=== PATIENT | female | born 1955 | race Caucasian/White ===

== ENCOUNTER 2025-03-20 14:08 | Outpatient (OUT) | payer MEDICARE, OTHER, SELFPAY ==
--- OUTSIDE RECORDS SUMMARY | 2025-03-07 13:07 | XMS_ITS | Encounter Summary ---
Author Organization [facility] Address [address], [address] [place] [address] Care Team Providers Care Welder And Fitter Name Role Phone Abdullahi Zarate aNthan IRIZARRYN - AIRCRAFT MANAGER Primary Care Provider Encounter Details DateTypeDepartmentCare Team (Latest Contact Info)Zgtoinljkdc69/31/2025 2:07 PM EDT - 03/07/2025 11:59 PM EDTHospital Encounter [address] [address] Stage 3a chronic kidney disease (HCC); Irritable bowel syndrome with diarrhea Discharge Disposition: Home or Self Care Social History Tobacco UseTypesPacks/DayYears UsedDateSmoking Tobacco: Every DayCigarettes1.544 Smokeless Tobacco: NeverAlcohol UseStandard Drinks/WeekCommentsYes1 (1 standard drink = 0.6 oz pure alcohol)A beer every once in QriketAnswerDate RecordedIn the past 12 months has the electric, gas, oil, or water company threatened to shut off services in your home?No5AUDIT-CAnswerDate RecordedQ1: How often do you have a drink containing alcohol?2-4 times a month 03/06/2024Q2: How many drinks containing alcohol do you have on a typical day when you are drinking?1 or Q3: How often do you have six or more drinks on one occasion?Never03/06/2024Overall Financial Resource Strain (CARDIA) AnswerDate RecordedHow hard is it for you to pay for the very basics like food, housing, medical care, and heating?Patient urkwuphe54/02/2024HQ-2AnswerDate RecordedPHQ-9 Total Npydj955Exercise Vital SignAnswerDate RecordedOn average, how many days per week do you engage in moderate to strenuous exercise (like a brisk walk)?6 days03/06/2024On average, how many minutes do you engage in exercise at this level?30 min03/06/2024Hunger Vital SignAnswerDate Recorded Within the past 12 months, you worried that your food would run out before you got the money to buymore.Never true12/11/2024Within the past 12 months, the food you bought just didn't last and you didn't have money to get more.Never true 12/11/2024PRAPARE - TransportationAnswerDate RecordedIn the past 12 months, has lack of transportation kept you from medical appointments or from getting medications?No12/11/2024In the past 12 months, has lack of transportation kept you from meetings, work, or from getting things needed for daily living?No 12/11/2024Housing Stability Vital SignAnswerDate RecordedUnable to Pay for Housing in the Last YearNot on file09/11/2023Number of Places Lived in the Last YearNot on file09/11/2023In the last 12 months, was there a time when you did not have a steady place to sleep or slept in [place] (including now)?No 09/11/2023Housing Stability Vital SignAnswerDate RecordedIn the last 12 months, was there a time when you were not able to pay the mortgage or rent on time?No 12/11/2024In the past 12 months, how many times have you moved where you were living?t any time in the past 12 months, were you homeless or living in a assisted (including now)?No12/11/2024UDIT-CAnswerDate RecordedQ1: How often do you have a drink containing alcohol?2-4 times a month03/06/2025Q2: How many drinks containing alcohol do you have on a typical day when you are drinking?1 or Q3: How often do you have six or more drinks on one occasion?Never 03/06/2025Exercise Vital SignAnswerDate RecordedOn average, how many days per week do you engage in moderate to strenuous exercise (like a brisk walk)?4 days 03/06/2025On average, how many minutes do you engage in exercise at this level? 30 min03/06/2025Food InsecurityAnswerDate RecordedWithin the past 12 months, you worried that your food would run out before you got the money to buymore.1 12/11/2024Within the past 12 months, the food you bought just didn't last and you didn't have money to get more.CommentsNoSex and Gender InformationValueDate RecordedSex Assigned at KzwzkVpslye80/26/2020 2:33 PM EDT Legal GywSjkrje79/10/2013 9:43 PM ESTGender VfqpiyjaZvksbf31/26/2020 2:33 PM EDT Sexual VnphvocosvkTpwskzwv91/26/2020 2:33 PM EDTdocumented as of this encounter Medications at Time of Discharge MedicationSigDispense QuantityRefillsLast FilledStart DateEnd Date VOWST CAPS 01/21/2025 vancomycin (VANCOCIN) 125 MG capsule TAKE 1 CAPSULE BY MOUTH THREE TIMES DAILY FOR 7 DAYS THEN 1 TWICE DAILY FOR 7 DAYS THEN 1 ONCE DAILY FOR 7 DAYS THEN EVERY OTHER DAY FOR 4 DOSES12/19/2024 lisinopril (PRINIVIL;ZESTRIL) 2.5 MG tablet Indications:Essential hypertensionTake 1 tablet by mouth once daily 90 tablet 01/17/2025 gabapentin (NEURONTIN) 100 MG capsule Take 1 capsule by mouth 2 times daily for 90 days. 180 capsule amoxicillin-clavulanate (AUGMENTIN) 875-125 MG per tablet Take 1 tablet by mouth every 12 hours12/07/2024 [facility]. Devices (COMMODE BEDSIDE) [facility] Indications:Irritable bowel syndrome with diarrhea,Weakness1 each by Does not apply route daily as needed (diarrhea) 1 each 09/10/2024 ondansetron (ZOFRAN-ODT) 4 MG disintegrating tablet Take 1 tablet by mouth every 8 hours as needed for Nausea or Vomiting 10 tablet 08/12/2024 metoprolol succinate (TOPROL XL) 25 MG extended release tablet Indications:Essential hypertension,Dyslipidemia,History of stroke,Coronary artery calcification,Tobacco abuse counselingTake 1 tablet by mouth once daily 90 tablet nitroGLYCERIN (NITROSTAT) 0.[address] 1 tablet under the tongue every 5 minutes as needed for Chest pain 25 tablet aspirin 81 MG EC tablet Indications:Essential hypertensionTake 1 tablet by mouth daily 90 tablet Multiple Vitamins-Minerals (COMPLETE MULTIVITAMIN/MINERAL PO) Take by mouth diphenhydrAMINE (BENADRYL) 25 MG capsule Take 2 capsules by mouth continuous ACETAMINOPHEN PO Take 500 mg by mouth daily Takes 1 in morning zoster recombinant adjuvanted vaccine (SHINGRIX) 50 MCG/0.5ML SUSR injection Indications:Need for shingles vaccineInject 0.5 mLs into the muscle See Admin Instructions 1 dose now and repeat in 2-6 months 0.5 mL atorvastatin (LIPITOR) 40 MG tablet Indications:DyslipidemiaTake 1 tablet by mouth nightly 90 tablet levalbuterol (XOPENEX) 1.25 MG/3ML nebulizer solution Indications:Chronic obstructive pulmonary disease with acute exacerbation (HCC) Take 3 mLs by nebulization every 6 hours as needed for Wheezing J44.0 J20.9 25 each documented as of this encounter Plan of Treatment DateTypeDepartmentCare Team (Latest Contact Info)Vdilmsxggvv49/19/2025 12:00 PM ESTOffice Visit [facility] Part of [address] [address] Indy Gonzalez MD [address] [place] [address] breast cancer ccvvzw4907/24/2025 1:00 PM EDTOffice Visit [facility] Part of [facility] [address] [place] [address] Lorena De La Vega MD [address] [facility] [place] [address] 1 yr09/10/2025 1:40 PM EDTOffice Visit [facility] [address] [place] [place] [address] Abdullahi Zarate, COKE HANDLING SUPERVISOR - AIRCRAFT MANAGER [address] [place] [address] 6 monthdocumented as of this encounter Procedures Procedure NamePriorityDate/TimeAssociated DiagnosisCommentsCBC WITH AUTO XLFDORTJMKWRGyswjmi93/31/2025 2:13 PM EDT Stage 3a chronic kidney disease (HCC) Irritable bowel syndrome with diarrhea BASIC METABOLIC RMKUFYkvegms51/31/2025 2:13 PM EDT Stage 3a chronic kidney disease (HCC) Irritable bowel syndrome with diarrhea documented in this encounter Results * (ABNORMAL) CBC with Auto Differential (03/07/2025 2:13 PM EDT)ComponentValue Ref RangeTest MethodAnalysis TimePerformed AtPathologist SignatureWBC9.03.5 - 11.3 k/uL03/07/2025 2:13 PM [facility] LABRBC3.66(L)3.95 - 5.11 m/uL03/07/2025 2:13 PM [facility] LABHemoglobin 11.5(L)11.9 - 15.1 g/dL03/07/2025 2:13 PM [facility] Tnlxzpawlj36.6(L)36.3 - 47.1 %03/07/2025 2:13 PM [facility] ZEDRKX99.582.6 - 102.9 fL03/07/2025 2:13 PM [facility] VCEHRW91.425.2 - 33.5 pg03/07/2025 2:13 PM [facility] NUNZBCZ60.228.4 - 34.8 g/dL03/07/2025 2:13 PM [facility] UGNYWM23.211.8 - 14.4 %03/07/2025 2:13 PM [facility] GBZMhucfangi387371 - 453 k/uL03/07/2025 2:13 PM [facility] LABMPV8.68.1 - 13.5 fL03/07/2025 2:13 PM [facility] LABNRBC Automated0.00.0 per 100 WBC03/07/2025 2:13 PM [facility] LABNeutrophils %5536 - 65 %03/07/2025 2:13 PM [facility] LABLymphocytes %3124 - 43 %03/07/2025 2:13 PM [facility] LABMonocytes %73 - 12 %03/07/2025 2:13 PM [facility] LABEosinophils %6(H)1 - 4 %03/07/2025 2:13 PM [facility] LABBasophils %10 - 2 %03/07/2025 2:13 PM [facility] LABImmature Granulocytes %00 %03/07/2025 2:13 PM [facility] LABNeutrophils Absolute4.991.50 - 8.10 k/uL 03/07/2025 2:13 PM [facility] LABLymphocytes Absolute2.73 1.10 - 3.70 k/uL03/07/2025 2:13 PM [facility] Monocytes Absolute0.590.10 - 1.20 k/uL03/07/2025 2:13 PM [facility] LABEosinophils Absolute0.56(H)0.00 - 0.44 k/uL03/07/2025 2:13 PM [facility] LABBasophils Absolute0.070.00 - 0.20 k/uL 03/07/2025 2:13 PM [facility] LABImmature Granulocytes Absolute<0.030.00 - 0.30 k/uL03/07/2025 2:13 PM [facility] LABSpecimen (Source)Anatomical Location / LateralityCollection Method / VolumeCollection TimeReceived TimeBloodBLOOD SPECIMEN / Inhkdxc2803/07/2025 2:13 PM EDT1 2:14 PM EDT Narrative Authorizing ProviderResult TypeResult StatusBrett W Might COKE HANDLING SUPERVISOR - CNPHEMATOLOGY ORDERABLESFinal ResultPerforming OrganizationAddressCity/State/ZIP CodePhone Number [facility] [address] [phone] * (ABNORMAL) Basic Metabolic Panel (03/07/2025 2:13 PM EDT)ComponentValueRef RangeTest MethodAnalysis TimePerformed AtPathologist DlobmumfnXridrd486(L)136 - 145 mmol/L1 2:13 PM [facility] LABPotassium4.2 3.7 - 5.3 mmol/L1 2:13 PM [facility] LABChloride 96(L)98 - 107 mmol/L1 2:13 PM [facility] LABCO2 2620 - 31 mmol/L1 2:13 PM [facility] LABAnion Bze034 - 16 mmol/L1 2:13 PM [facility] Hygdfnp5052 - 99 mg/dL03/07/2025 2:13 PM [facility] IVL257 - 23 mg/dL03/07/2025 2:13 PM [facility] Creatinine0.90.50 - 0.90 mg/dL03/07/2025 2:13 PM [facility] LABEst, Glom Filt Rate67>60 mL/min/1.36x16503/07/2025 2:13 PM [facility] LABComment: ? These results are not intended for use in patients <18 years of age. ? eGFR results are calculated without a race factor using the 2020 CKD-EPI equation. Careful clinical correlation is recommended, particularly when comparing to results calculated using previous equations. The CKD-EPI equation is less accurate in patients with extremes of muscle mass, extra-renal metabolism of creatine, excessive creatine ingestion, or following therapy that affects renal tubular secretion. BUN/Creatinine Libjf353 - 2:13 PM [facility] LABCalcium9.68.6 - 10.4 mg/dL03/07/2025 2:13 PM [facility] LABSpecimen (Source)Anatomical Location / LateralityCollection Method / Volume Collection TimeReceived TimeBloodBLOOD SPECIMEN / Hqvsaik5403/07/2025 2:13 PM EDT 03/07/2025 2:14 PM EDT Narrative Authorizing ProviderResult TypeResult StatusAbdullahi Resendiz CNPCHEMISTRY ORDERABLESFinal ResultPerforming OrganizationAddressCity/State/ZIP CodePhone Number [facility] [address] [phone] documented in this encounter Visit Diagnoses Diagnosis Stage 3a chronic kidney disease (HCC) Irritable bowel syndrome with diarrhea Irritable bowel syndrome documented in this encounter Additional Health Concerns AssessmentNoted TimeA fall risk assessment has been completed for the patient 03/06/2025 2:04 PM EDTdocumented as of this encounter Care Teams Team MemberRelationshipSpecialtyStart DateEnd Date Abdullahi Zarate APRN - CNP PCP - GeneralNurse Practitioner07/23/13documented as of this encounter
--- OUTSIDE RECORDS SUMMARY | 2025-03-13 13:40 | XMS_ITS | Encounter Summary ---
Author Organization [facility] Address [address], [address] [place] [address] Care Team Providers Care Business Sales Consultant Name Role Phone Abdullahi Zarate APRN, CNP Primary Care Provider Reason for Referral * Other (Routine) - AuthorizedSpecialtyDiagnoses / ProceduresReferred By Contact Referred To ContactRadiology Diagnoses Encounter for screening mammogram for malignant neoplasm of breast Procedures EDDIE PROSPER DIGITAL SCREEN BILATERAL Abdullahi Zarate APRN - CNP [address] [phone] Phone: tel: fax: Referral IDStatusReasonStart DateExpiration DateVisits RequestedVisits [id number]/6/[id number]/ * Imaging (Routine) - OpenSpecialtyDiagnoses / ProceduresReferred By Contact Referred To ContactRadiology Diagnoses Personal history of tobacco use Procedures CT Lung Screen (Initial/Annual/Baseline) Abdullahi Zarate APRN - CNP [address] [id number] Phone: tel: fax: Referral IDStatusReasonStart DateExpiration DateVisits RequestedVisits [id number]/6/[id number]/ Reason for Visit * ReasonCommentsMedicare AWVAwv and routine check.HyperlipidemiaCOPD Encounter Details DateTypeDepartmentCare Team (Latest Contact Info)Xpwracwywxp31/06/2025 1:40 PM ESTOffice Visit [facility] [place] [address] [place] [address] Abdullahi Zarate APRN - CNP [address] [place] [address] Medicare annual wellness visit, subsequent (Primary Dx); Dyslipidemia; Emphysema lung (HCC); Personal history of tobacco use; Encounter for screening mammogram for malignant neoplasm of breast Social History Tobacco UseTypesPacks/DayYears UsedDateSmoking Tobacco: Every DayCigarettes1.544 Smokeless Tobacco: NeverAlcohol UseStandard Drinks/WeekCommentsYes1 (1 standard drink = 0.6 oz pure alcohol)A beer every once in awhileAUDIT-CAnswerDate RecordedQ1: How often do you have a [...] like food, housing, medical care, and heating?Patient /02/2024HQ-2AnswerDate RecordedPHQ-9 Total Yhirf799Exercise Vital SignAnswerDate RecordedOn average, how many days per week do you engage in moderate to strenuous exercise (like a brisk walk)?6 days03/06/2024On average, how many minutes do you engage in exercise at this level?30 min03/06/2024RAPARE - TransportationAnswerDate RecordedIn the past 12 months, has lack of transportation kept you from medical appointments or from getting medications?No12/11/2024In the past 12 months, has lack of transportation kept you from meetings, work, or from getting things needed for daily living?No12/11/2024Housing Stability Vital SignAnswerDate RecordedUnable to Pay for Housing in the Last YearNot on file09/11/2023Number of Places Lived in the Last YearNot on file09/11/2023In the last 12 months, was there a time when you did not have a steady place to sleep or slept in [facility] (including now)?No09/11/2023Housing Stability Vital SignAnswerDate RecordedIn the last 12 months, was there a time when you were not able to pay the mortgage or rent on time?No03/13/2025In the past 12 months, how many times have you moved where you were living?t any time in the past 12 months, were you homeless or living in a care home (including now)?No03/13/2025UDIT-CAnswerDate RecordedQ1: How often do you have a drink containing alcohol?2-4 times a month 03/06/2025Q2: How many drinks containing alcohol do you have on a typical day when you are drinking?1 or Q3: How often do you have six or more drinks on one occasion?Never03/06/2025Exercise Vital SignAnswerDate RecordedOn average, how many days per week do you engage in moderate to strenuous exercise (like a brisk walk)?4 days03/06/2025On average, how many minutes do you engage in exercise at this level?30 min03/06/2025Hunger Vital SignAnswerDate Recorded Within the past 12 months, you worried that your food would run out before you got the money to buymore.Never true03/13/2025Within the past 12 months, the food you bought just didn't last and you didn't have money to get more.Never true 03/13/2025PRAPARE - TransportationAnswerDate RecordedIn the past 12 months, has lack of transportation kept you from medical appointments or from getting medications?No03/13/2025In the past 12 months, has lack of transportation kept you from meetings, work, or from getting things needed for daily living?No 03/13/2025HC UtilitiesAnswerDate RecordedIn the past 12 months has the electric, gas, oil, or water company threatened to shut off services in your home?No03/13/2025CommentsNoSex and Gender InformationValueDate Recorded Sex Assigned at AfddcNfxlch27/26/2020 2:33 PM EDTLegal VjuEhawsw95/10/2013 9:43 PM ESTGender KgihuajcZprork30/26/2020 2:33 PM EDTSexual OrientationStraight 03/02/2020 2:33 PM EDTdocumented as of this encounter Last Filed Vital Signs Vital SignReadingTime TakenCommentsBlood Iiolubvn952/6403/13/2025 1:36 PM EST Acvpv228003/13/2025 1:36 PM XSAHiinxbsfltg75.7 ??C (98 ??F)03/13/2025 1:36 PM EST Respiratory Rate--Oxygen Sdfavfljiq02%03/13/2025 1:36 PM ESTInhaled Oxygen Concentration--Mgtqux89.3 kg (122 lb)03/13/2025 1:36 PM QHARlfska531.1 cm (5' 5 )03/13/2025 1:36 PM ESTBody Mass Index20. 1:36 PM ESTdocumented in this encounter Patient Instructions * Patient Instructions* Abdullahi Zarate APRN - CNP - 03/13/2025 1:34 PM EST Images from the original note were not included. SURVEY: You may be receiving a survey from [employer] regarding your visit today. Please complete the survey to enable us to provide the highest quality of care to you and your family. If you cannot score us a very good on any question, please call the office to discuss how we could have made your experience a very good one. Thank you, LAURO Veliz, LAURO Gregorio, LARS Marks, CABLE SPLICER ASSISTANT Rubén, CABLE SPLICER ASSISTANT Zulma, CABLE SPLICER ASSISTANT Bibiana, CABLE SPLICER ASSISTANT Natalie, CABLE SPLICER ASSISTANT Buffy, PM Preventing Falls: Care Instructions Injuries and health problems such as trouble walking or poor eyesight can increase your risk of falling. So can some medicines. But there are things you can do to help prevent falls. You can exerciseto get stronger. You can also arrange your home to make it safer. Talk to your doctor about the medicines you take. Ask if any of them increase the risk of falls andwhether they can be changed or stopped. Try to exercise regularly. It can help improve your strength and balance. This can help lower your risk of falling. Practice fall safety and prevention. Wear low-heeled shoes that fit well and give your feet good support. Talk to your doctor if you have foot problems that make this hard. Carry a cellphone or wear a medical alert device that you can use to call for help. Use stepladders instead of chairs to reach high objects. Don't climb if you're at risk for falls. Ask for help, if needed. Wear the correct eyeglasses, if you need them. Make your home safer. Remove rugs, cords, clutter, and furniture from walkways. Keep your house well lit. Use night-lights in hallways and bathrooms. Install and use sturdy handrails on stairways. Wear nonskid footwear, even inside. Don't walk barefoot or in socks without shoes. Be safe outside. Use handrails, curb cuts, and ramps whenever possible. Keep your hands free by using a shoulder bag or backpack. Try to walk in well-lit areas. Watch out for uneven ground, changes in pavement, and debris. Be careful in the winter. Walk on the grass or gravel when sidewalks are slippery. Use de-icer on steps and walkways. Add non-slip devices to shoes. Put grab bars and nonskid mats in your shower or tub and near the toilet. Try to use a shower chairor bath bench when bathing. Get into a tub or shower by putting in your weaker leg first. Get out with your strong side first. Have a phone or medical alert device in the bathroom with you. Where can you learn more? Go to https://www.healthwise.net/patientEd and enter G117 to learn more about Preventing Falls: Care Instructions. Current as of: December 06, 2023 Content Version: 14.6 ?? [employer]. Care instructions adapted under license by [employer]. If you have questions about a medical condition or this instruction, always ask your healthcare professional. [employer], [employer], disclaims any warranty or liability for your use of this information. Learning About Lung Cancer Screening What is screening for lung cancer? Lung cancer screening is a way to find some lung cancers early, before a person has any symptoms ofthe cancer. Lung cancer screening may help those who have the highest risk for lung cancer--people age 50 and older who are or were heavy smokers. For most people, who aren't at increased risk, screening for lung cancer probably isn't helpful. Screening won't prevent cancer. And it may not find all lung cancers. Lung cancer screening may lower the risk of dying from lung cancer in a small number of people. How is it done? Lung cancer screening is done with a low-dose CT (computed tomography) scan. A CT scan uses X-rays,or radiation, to make detailed pictures of your body. Experts recommend that screening be done in medical centers that focus on finding and treating lung cancer. Who is screening recommended for? Lung cancer screening is recommended for people age 50 and older who are or were heavy smokers. That means people with a smoking history of at least 20 pack years. A pack year is a way to measure howheavy a smoker you are or were. To figure out your pack years, multiply how many packs a day on average (assuming 20 cigarettes perpack) you have smoked by how many years you have smoked. For example: If you smoked 1 pack a day for 20 years, that's 1 times 20. So you have a smoking history of 20 pack years. If you smoked 2 packs a day for 10 years, that's 2 times 10. So you have a smoking history of 20 pack years. Experts agree that screening is for people who have a high risk of lung cancer. But experts don't agree on what high risk means. Some say people age 50 or older with at least a 87-cjcn-pehq smoking history are high risk. Others say it's people age 55 or older with a 22-wdub-qggz history. To see if you could benefit from screening, first find out if you are at high risk for lung cancer.Your doctor can help you decide your lung cancer risk. What are the risks of screening? CT screening for lung cancer isn't perfect. It can show an abnormal result when it turns out there wasn't any cancer. This is called a false-positive result. This means you may need more tests to make sure you don't have cancer. These tests can be harmful and cause a lot of worry. These tests may include more CT scans and invasive testing like a lung biopsy. In a biopsy, the doctor takes a sample of tissue from inside your lung so it can be looked at under a microscope. A biopsy is the only way to tell if you have lung cancer. If the biopsy finds cancer, you and your doctor will have to decide how or whether to treat it. Some lung cancers found on CT scans are harmless and would not have caused a problem if they had not been found through screening. But because doctors can't tell which ones will nocturnist physician to be harmless, most will be treated. This means that you may get treatment--including surgery, radiation, or chemotherapy--that you don't need. There is a risk of damage to cells or tissue from being exposed to radiation, including the small amounts used in CTs, X-rays, and other medical tests. Over time, exposure to radiation may cause cancer and other health problems. But in most cases, the risk of getting cancer from being exposed to small amounts of radiation is low. It's not a reason to avoid these tests for most people. What are the benefits of screening? Your scan may be normal (negative). For some people who are at higher risk, screening lowers the chance of dying of lung cancer. How much and how long you smoked helps to determine your risk level. Screening can find some cancers early, when treatment may be more likely to work. What happens after screening? The results of your CT scan will be sent to your doctor. Someone from your care team will explain the results of your scan and answer any questions you may have. If you need any follow-up, he or she will help you understand what to do next. After a lung cancer screening, you can go back to your usual activities right away. A lung cancer screening test can't tell if you have lung cancer. If your results are positive, yourdoctor can't tell whether an abnormal finding is a harmless nodule, cancer, or something else without doing more tests. What can you do to help prevent lung cancer? Some lung cancers can't be prevented. But if you smoke, quitting smoking is the best step you can take to prevent lung cancer. If you want to quit, your doctor can recommend medicines or other ways to help. Follow-up care is a saunders part of your treatment and safety. Be sure to make and go to all appointments, and call your doctor if you are having problems. It's also a good idea to know your test resultsand keep a list of the medicines you take. Where can you learn more? Go to https://www.[employer].net/patientEd and enter Q940 to learn more about Learning About Lung Cancer Screening. Current as of: March 01, 2024 Content Version: 14.6 ?? 1363-6411 [employer]. Care instructions adapted under license by [employer]. If you have questions about a medical condition or this instruction, always ask your healthcare professional. [employer], disclaims any warranty or liability for your use of this information. A Healthy Heart: Care Instructions Overview Coronary artery disease, also called heart disease, occurs when a substance called plaque builds upin the vessels that supply oxygen-rich blood to your heart muscle. This can narrow the blood vessels and reduce blood flow. A heart attack happens when blood flow is completely blocked. A high-fat diet, smoking, and other factors increase the risk of heart disease. Your doctor has found that you have a chance of having heart disease. A heart- healthy lifestyle canhelp keep your heart healthy and prevent heart disease. This lifestyle includes eating healthy, being active, staying at a weight that's healthy for you, and not smoking, vaping, or using other tobacco or nicotine products. It also includes taking medicines as directed, managing other health conditions, and trying to get a healthy amount of sleep. Follow-up care is a saunders part of your treatment and safety. Be sure to make and go to all appointments, and contact your doctor if you are having problems. It's also a good idea to know your test results and keep a list of the medicines you take. How can you care for yourself at home? Diet Use less salt when you cook and eat. This helps lower your blood pressure. Taste food before salting. Add only a little salt when you think you need it. With time, your taste buds will adjust to lesssalt. Eat fewer snack items, fast foods, canned soups, and other high-salt, high-fat, processed foods. Read food labels and try to avoid saturated and trans fats. They increase your risk of heart disease by raising cholesterol levels. Limit the amount of solid fat--butter, margarine, and shortening--you eat. Use olive, peanut, or canola oil when you cook. Bake, broil, and steam foods instead of frying them. Eat a variety of fruit and vegetables every day. Dark green, deep orange, red, or yellow fruits andvegetables are especially good for you. Examples include spinach, carrots, peaches, and berries. Foods high in fiber can reduce your cholesterol and provide important vitamins and minerals. High-fiber foods include whole-grain cereals and breads, oatmeal, beans, brown rice, citrus fruits, and apples. Eat lean proteins. Heart-healthy proteins include seafood, lean meats and poultry, eggs, beans, peas, nuts, seeds, and soy products. Limit drinks and foods with added sugar. These include candy, desserts, and soda pop. Heart-healthy lifestyle If your doctor recommends it, get more exercise. For many people, walking is a good choice. Or you may want to swim, bike, or do other activities. Bit by bit, increase the time you're active every day. Try for at least 30 minutes on most days of the week. If you smoke, vape, or use other tobacco or nicotine products, try to quit. If you can???t quit, cut back as much as you can. If you need help quitting, talk to your doctor about quit programs and medicines. Quitting is one of the most important things you can do to protect your heart. Also avoid secondhand smoke and the aerosol mist from vaping. Stay at a weight that's healthy for you. Talk to your doctor if you need help losing weight. Try to get 7 to 9 hours of sleep each night. Limit alcohol to 2 drinks a day for men and 1 drink a day for women. Too much alcohol can cause health problems. Manage other health problems such as diabetes, high blood pressure, and high cholesterol. If you think you may have a problem with alcohol or drug use, talk to your doctor. Medicines Take your medicines exactly as prescribed. Contact your doctor if you think you are having a problem with your medicine. When should you call for help? Call 911 if you have symptoms of a heart attack. These may include: Chest pain or pressure, or a strange feeling in the chest. Sweating. Shortness of breath. Pain, pressure, or a strange feeling in the back, neck, jaw, or upper belly or in one or both shoulders or arms. Lightheadedness or sudden weakness. A fast or irregular heartbeat. After you call 911, the profiling machine set up operator may tell you to chew 1 adult-strength or 2 to 4 low-dose aspirin. Wait for an ambulance. Do not try to drive yourself. Watch closely for changes in your health, and be sure to contact your doctor if you have any problems. Where can you learn more? Go to https://www.[employer].net/patientEd and enter F075 to learn more about A Healthy Heart: Care Instructions. Current as of: December 06, 2023 Content Version: 14.6 ?? 5273-5787 [employer]. Care instructions adapted under license by [employer]. If you have questions about a medical condition or this instruction, always ask your healthcare professional. [employer], disclaims any warranty or liability for your use of this information. Personalized Preventive Plan for Irene Baker - 03/13/2025 Medicare offers a range of preventive health benefits. Some of the tests and screenings are paid infull while other may be subject to a deductible, co- insurance, and/or copay. Some of these benefits include a comprehensive review of your medical history including lifestyle, illnesses that may run in your family, and various assessments and screenings as appropriate. After reviewing your medical record and screening and assessments performed today your provider mayhave ordered immunizations, labs, imaging, and/or referrals for you. A list of these orders (if applicable) as well as your Preventive Care list are included within your After Visit Summary for your review. documented in this encounter Progress Notes * Abdullahi Zarate APRN - CNP - 03/13/2025 1:43 PM EST Medicare Annual Wellness Visit Irene Baker is here for Medicare AWV (Awv and routine check.), Hyperlipidemia, and COPD Assessment & Plan Medicare annual wellness visit, subsequent Dyslipidemia - atorvastatin (LIPITOR) 40 MG tablet; Take 1 tablet by mouth nightly, Disp-90 tablet, R-3Normal - CBC with Auto Differential; Future - ALT; Future - AST; Future - Basic Metabolic Panel; Future - Lipid Panel; Future Emphysema lung (HCC) - levalbuterol (XOPENEX) 1.25 MG/3ML nebulizer solution; Take 3 mLs by nebulization every 6 hours as needed for Wheezing J44.0 J20.9, Disp-25 each, R-2Normal Personal history of tobacco use - [place] VISIT TO DISCUSS LUNG CA SCREEN W LDCT - CT Lung Screen (Initial/Annual/Baseline); Future Encounter for screening mammogram for malignant neoplasm of breast - [facility] PROSPER DIGITAL SCREEN BILATERAL; Future Return in 6 months (on 09/10/2025). Subjective The following acute and/or chronic problems were also addressed today: Irene is here for a Medicare annual wellness visit and a routine office visit. Hyperlipidemia This is a chronic problem. The current episode started more than 1 year ago. The problem is controlled. Recent lipid tests were reviewed and are normal. She has no history of chronic renal disease, liver disease or obesity. Factors aggravating her hyperlipidemia include smoking. Pertinent negativesinclude no chest pain, leg pain, myalgias or shortness of breath. Current antihyperlipidemic treatment includes statins. The current treatment provides significant improvement of lipids. There are nocompliance problems. Risk factors for coronary artery disease include dyslipidemia, family history,hypertension, post-menopausal and stress. COPD There is no chest tightness, cough, difficulty breathing, frequent throat clearing, hemoptysis, hoarse voice, shortness of breath, sputum production or wheezing. This is a chronic problem. The current episode started more than 1 year ago. The problem occurs intermittently. The problem has been unchanged. Pertinent negatives include no appetite change, chest pain, dyspnea on exertion, ear congestion, ear pain, fever, headaches, heartburn, malaise/fatigue, myalgias, nasal congestion, orthopnea, PND, postnasal drip, rhinorrhea, sneezing, sore throat, sweats, trouble swallowing or weight loss. Her symptoms are aggravated by URI, strenuous activity, exposure to smoke, exposure to fumes, change in weather and climbing stairs. Her symptoms are alleviated by rest and beta-agonist. She reports significant improvement on treatment. Her symptoms are not alleviated by rest. Risk factors for lung disease include smoking/tobacco exposure. Her past medical history is significant for bronchitis, COPD, emphysema and pneumonia. There is no history of asthma or bronchiectasis. Review of Systems Constitutional: Negative for appetite change, chills, fatigue, fever, malaise/fatigue and weight loss. HENT: Negative for congestion, ear pain, hoarse voice, postnasal drip, rhinorrhea, sneezing, sore throat and trouble swallowing. Eyes: Negative for visual disturbance. Respiratory: Negative for cough, hemoptysis, sputum production, shortness of breath and wheezing. Cardiovascular: Negative for chest pain, dyspnea on exertion, palpitations and PND. Gastrointestinal: Negative for abdominal pain, constipation, diarrhea, heartburn, nausea and vomiting. Genitourinary: Negative for difficulty urinating and dysuria. Musculoskeletal: Negative for gait problem, myalgias, neck pain and neck stiffness. Skin: Negative for rash. Neurological: Negative for dizziness, syncope, light-headedness and headaches. Patient's complete Health Risk Assessment and screening values have been reviewed and are found in Flowsheets. The following problems were reviewed today and where indicated follow up appointments were made and/or referrals ordered. Positive Risk Factor Screenings with Interventions: Fall Risk: Do you feel unsteady or are you worried about falling? : no 2 or more falls in past year?: (!) yes Fall with injury in past year?: no Interventions: Reviewed medications, home hazards, visual acuity, and co-morbidities that can increase risk for falls Tobacco Use: Tobacco Use Smoking status: Every Day Packs/day: 1.50 Years: 1.5 packs/day for 44.0 years (66.0 ttl pk-yrs) Types: Cigarettes Smokeless tobacco: Never Interventions: Patient declined any further intervention or treatment Objective Vitals: 03/13/25 1336 BP: 120/64 BP Site: Left Upper Arm Patient Position: Sitting BP Cuff Size: Medium Adult Pulse: 73 Temp: 98 ??F (36.7 ??C) SpO2: 97% Weight: 55.3 kg (122 lb) Height: 1.651 m (5' 5 ) Body mass index is 20.3 kg/m??. General Appearance: alert and oriented to person, place and time, well-developed and well nourished, and in no acute distress Skin: warm and dry Head: normocephalic and atraumatic Eyes: conjunctivae normal and sclera anicteric ENT: oropharynx clear and moist with normal mucous membranes Neck: neck supple and non tender without mass Pulmonary/Chest: clear to auscultation bilaterally- no wheezes, rales or rhonchi, normal air movement, no respiratory distress Cardiovascular: normal rate, regular rhythm, and no carotid bruits Abdomen: soft, non-tender Extremities: no edema Musculoskeletal: normal range of motion, no joint swelling, deformity or tenderness Neurologic: gait and coordination normal and speech normal Allergies Allergen Reactions Sulfa Antibiotics Prior to Visit Medications Medication Sig Taking? Authorizing Provider atorvastatin (LIPITOR) 40 MG tablet Take 1 tablet by mouth nightly Yes Abdullahi Zarate APRN - CNP levalbuterol (XOPENEX) 1.25 MG/3ML nebulizer solution Take 3 mLs by nebulization every 6 hours as needed for Wheezing J44.0 J20.9 Yes Abdullahi Zarate APRN - CNP VOWST CAPS Yes ProviderGomez MD vancomycin (VANCOCIN) 125 MG capsule TAKE 1 CAPSULE BY MOUTH THREE TIMES DAILY FOR 7 DAYS THEN 1 TWICE DAILY FOR 7 DAYS THEN 1 ONCE DAILY FOR 7 DAYS THEN EVERY OTHER DAY FOR 4 DOSES Yes Provider, MD Gomez lisinopril (PRINIVIL;ZESTRIL) 2.5 MG tablet Take 1 tablet by mouth once daily Yes Abdullahi Zarate APRN - CNP gabapentin (NEURONTIN) 100 MG capsule Take 1 capsule by mouth 2 times daily for 90 days. Yes Tahira Deluna APRN - CNP Misc. Devices (COMMODE BEDSIDE) MISC 1 each by Does not apply route daily as needed (diarrhea) Yes Abdullahi Zarate APRN - CNP ondansetron (ZOFRAN-ODT) 4 MG disintegrating tablet Take 1 tablet by mouth every 8 hours as needed for Nausea or Vomiting Yes Christopher Mistry DO metoprolol succinate (TOPROL XL) 25 MG extended release tablet Take 1 tablet by mouth once daily Yes Marilou Kent PA-C nitroGLYCERIN (NITROSTAT) 0.[address] 1 tablet under the tongue every 5 minutes as needed for Chest pain Yes Lorena De La Vega MD aspirin 81 MG EC tablet Take 1 tablet by mouth daily Yes Abdullahi Zarate APRN - CNP Multiple Vitamins-Minerals (COMPLETE MULTIVITAMIN/MINERAL PO) Take by mouth Yes ProviderGomez MD diphenhydrAMINE (BENADRYL) 25 MG capsule Take 2 capsules by mouth continuous Yes Gomez Adrian MD ACETAMINOPHEN PO Take 500 mg by mouth daily Takes 1 in morning Yes Gomez Adrian MD amoxicillin-clavulanate (AUGMENTIN) 875-125 MG per tablet Take 1 tablet by mouth every 12 hours Patient not taking: Reported on 03/13/2025 ProviderGomez MD CareTeam (Including outside providers/suppliers regularly involved in providing care): Patient Care Team: Abdullahi Zarate APRN - CNP as PCP - General (Nurse Practitioner) Abdullahi Zarate APRN - CNP as PCP - Empaneled Provider Recommendations for Preventive Services Due: see orders and patient instructions/AVS. Recommended screening schedule for the next 5-10 years is provided to the patient in written form: see Patient Instructions/AVS. Reviewed and updated this visit: Tobacco Allergies Meds Problems Med Hx Surg Hx Fam Hx documented in this encounter Plan of Treatment DateTypeDepartmentCare Team (Latest Contact Info)Vcuwxpmhebt74/19/2025 12:00 PM ESTOffice Visit [facility] Part of [address] [address] Indy Gonzalez MD [address] [place], [place] [id number] breast cancer bmgkmu1607/24/2025 1:00 PM EDTOffice Visit [facility] Part of [address] [address] Lorena De La Vega MD [address] [facility] [place] [address] 1 yr09/10/2025 1:40 PM EDTOffice Visit [facility] [place] [address] [place] [address] Abdullahi Zarate APRN - CNP [address] [place] [address] 6 monthNameTypePriorityAssociated DiagnosesOrder ScheduleCT Lung Screen (Initial/Annual/Baseline)ImagingRoutine Personal history of tobacco use Expected: 03/13/2025, Expires: 09/10/2026CBC with Auto DifferentialLabRoutine Dyslipidemia Expected: 09/09/2025 (Approximate), Expires: 03/13/2026LTLabRoutine Dyslipidemia Expected: 09/10/2025 (Approximate), Expires: 03/13/2026STLabRoutine Dyslipidemia Expected: 09/10/2025 (Approximate), Expires: 03/13/2026asic Metabolic PanelLab Routine Dyslipidemia Expected: 09/10/2025 (Approximate), Expires: 03/13/2026Lipid PanelLabRoutine Dyslipidemia Expected: 09/09/2025 (Approximate), Expires: 03/13/2026MAM PROSPER DIGITAL SCREEN BILATERALImagingRoutine Encounter for screening mammogram for malignant neoplasm of breast Expected: 03/13/2025, Expires: 05/13/2026documented as of this encounter Visit Diagnoses Diagnosis Medicare annual wellness visit, subsequent- Primary Routine general medical examination at a health care facility Dyslipidemia Other and unspecified hyperlipidemia Emphysema lung (HCC) Other emphysema Personal history of tobacco use Personal history of tobacco use, presenting hazards to health Encounter for screening mammogram for malignant neoplasm of breast Other screening mammogram documented in this encounter Additional Health Concerns AssessmentNoted TimeA fall risk assessment has been completed for the patient 03/06/2025 2:04 PM EDTdocumented as of this encounter Care Teams Team MemberRelationshipSpecialtyStart DateEnd Date Abdullahi Zarate APRN - CNP PCP - GeneralNurse Practitioner07/23/13documented as of this encounter
--- OUTSIDE RECORDS SUMMARY | 2025-03-20 14:13 | XMS_ITS | Clinical Summary ---
Author Organization [facility] Address [address] [place] [address] Care Team Providers Care Collection Coordinator Name Role Phone Abdullahi Zarate LUIS Primary Care Provider + Allergies Active AllergyReactionsCriticalityNoted DateCommentsSulfa (Sulfonamide Antibiotics)Lofzzbk5608/21/2017 Medications MedicationSigDispense QuantityRefillsLast FilledStart DateEnd DateStatus acetaminophen (TYLENOL ER) 650 MG CR tablet Take 1 (one) tablet (650 mg total) by mouth every morning .Active albuterol (PROVENTIL) 2.5 mg /3 mL (0.083 %) nebulizer solution 3 mL (2.5 mg total) every 6 (six) hours as needed .12/05/2018Active aspirin 81 MG EC tablet Take 1 (one) tablet (81 mg total) by mouth every morning .02/13/2019Active atorvastatin (LIPITOR) 40 MG tablet Take 1 (one) tablet (40 mg total) by mouth every evening .Active diphenhydrAMINE (BENADRYL) 25 mg capsule Take 2 (two) capsules (50 mg total) by mouth nightly .Active gabapentin (NEURONTIN) 100 MG capsule Take 1 (one) capsule (100 mg total) by mouth 2 (two) times a day .04/26/2019 Active lisinopril (PRINIVIL,ZESTRIL) 2.5 MG tablet Take 1 (one) tablet (2.5 mg total) by mouth every morning .05/21/2019Active multivitamin with minerals tablet Take 1 (one) tablet by mouth every morning .Active metoprolol succinate (TOPROL-XL) 25 MG 24 hr tablet Take 1 (one) tablet (25 mg total) by mouth every evening .03/28/2023ctive nitroGLYCERIN (NITROSTAT) 0.[address] 1 (one) tablet (0.4 mg total) under the tongue every 5 (five) minutes as needed .04/17/2021ctive triamcinolone (KENALOG) 0.1 % ointment Apply 1 Application topically 2 (two) times a day as needed .09/26/2022ctive naloxone (NARCAN) 4 mg/actuation [place] Administer 1 spray into one nostril for known or suspected opioid overdose. If patient worsens or does not respond, may repeat in 2-3 minutes. . 2 each ctive oxyCODONE (ROXICODONE) 5 MG immediate release tablet Take 1 (one) tablet (5 mg total) by mouth every 6 (six) hours as needed . 01/07/2024ctive Active Problems ProblemNoted DateDiagnosed DateInternal carotid artery stenosis, right12/29/2023 [place] (dyspnea on exertion)06/20/2019 Overview (06/20/2019): Added automatically from request for surgery [id number] Bilateral carotid artery pzeheyay90/05/2020 Assessment & Plan (12/06/2023 10:33 AM EDT): Patient presents for a left carotid angiogram with Dr. Araujo after findings of bilateral carotid stenosis. Dr. Taylor Almaguer from the vascular surgery team is planning a right carotid endarterectomy at a later date. Plan: The patient will proceed to [facility] for scheduled angiogram with Dr. Araujo. The patient will remain on aspirin, Plavix and high intensity statin therapy which she has taken today. Assessment & Plan (06/12/2019 4:39 PM EST): ?? With probable severe restenosis of left carotid stent ?? Asymptomatic, moderate to severe right carotid stenosis ?? Recommend continued aspirin, Plavix, and statin ?? Discussed smoking cessation ?? Discussed options for further evaluation, and I recommend angiogram, especially since the exact degree of stenosis is unclear due to all her calcific shadowing ?? Procedure and risks reviewed, she would like to proceed ?? Given her dyspnea on exertion at high risk for concomitant coronary disease, we discussed stresstesting versus empiric angiography during the carotid angio, she would like to have coronary angiogram the same setting. Encounters DateTypeDepartmentCare VrbbYlwxdnppkmr03/08/2025Documentation [facility] [address] [place] [address] Brigitte Abraham RN 12/30/2024Orders Only [facility] [address] [place] [address] Brigitte Abraham RN Bilateral carotid artery stenosis (Primary Dx)from Last 3 Months Family History Medical HistoryRelationCommentsCancerFathercolon cancerBreast cancerMaternal AuntDiabetesMaternal GrandmotherAlzheimer's diseaseMotherCancerPaternal GrandfatherAnemiaSisterRelationStatusCommentsFatherDeceasedMaternal AuntMaternal GrandmotherMotherDeceasedPaternal GrandfatherSister Social History Tobacco UseTypesPacks/DayYears UsedDateSmoking Tobacco: Every DayCigarettes1.545 Smokeless Tobacco: Never Tobacco Cessation:Ready to Q uit: Yes; Counseling Given: Yes Comments:cutting back Alcohol UseStandard Drinks/WeekCommentsYes0 (1 standard drink = 0.6 oz pure alcohol)OccasionalCommentsNoSex and Gender InformationValueDate Recorded Sex Assigned at BirthNot on fileLegal QkaDwhivb01/26/2014 3:26 PM EDTGender ZnoscvwjZbwbvl38/13/2020 2:10 PM ESTSexual PzyhwhqaucuXjjlrual77/13/2020 2:10 PM EST Last Filed Vital Signs Vital SignReadingTime TakenCommentsBlood Vrbhfben980/7009 10:38 AM EDT Tagzo0138 10:38 AM OAHSfoijfbktdz90.4 ??C (99.3 ??F)12/30/2023 11:10 AM EDTRespiratory Tlra7639 10:38 AM EDTOxygen Drizoesvoj63%01/31/2024 10:38 AM EDTInhaled Oxygen Concentration--Ptdwek75.4 kg (120 lb)01/31/2024 10:38 AM OZIMemmhh287.6 cm (5' 4 )01/31/2024 10:38 AM EDTBody Mass Index20.6001/31/2024 10:38 AM EDT Plan of Treatment Health MaintenanceDue DateLast DoneCommentsCT Ewxfddwjbozo1955Dexa Scan 1955Fecal DNA1955Fecal occult blood test (FOBT,FIT)1955 Depression Screening/Follow-Up (PHQ-2/9)1967Hepatitis C Screening 1973Pneumococcal Vaccine: 50+ Years (1 of 2 - PCV)1974 Tetanus/Diphtheria/Pertussis (1 - Tdap)1974Flexible sigmoidoscopy 2005RSV Vaccines (1 - Risk 50-74 years 1-dose series)2005Zoster Vaccines (1 of 2)2005Falls Risk Lplggctclj62/18/2020Medicare Wellness Visit/10/2022, 03/08/2022, 01/22/2021, Additional history exists Npglnzurp32/01/2023, 01/21/2022, 01/15/2019, Additional history exists COVID-19 Vaccine ( season)/, 03/24/2021, 08/07/2020, Additional history existsInfluenza Vaccine (#1)5Colonoscopy Colorectal Cancer Screening/Umhbvqtypb13/18/2026Pap Smear Frxivpictdhh36/19/2020HIB VaccinesAged OutNo longer eligible based on patient's age to complete this topicHPV VaccinesAged OutNo longer eligible based on patient's age to complete this topicHepatitis A VaccinesAged OutNo longer eligible based on patient's age to complete this topicHepatitis B VaccinesAged OutNo longer eligible based on patient's age to complete this topicIPV Vaccines Aged OutNo longer eligible based on patient's age to complete this topic Meningococcal ACWY VaccineAged OutNo longer eligible based on patient's age to complete this topicMeningococcal B VaccineAged OutNo longer eligible based on patient's age to complete this topicRotavirus VaccinesAged OutNo longer eligible based on patient's age to complete this topic Medical Devices ImplantedTypeAreaManufacturerDevice IdentifierShelf Expiration DateModel / Serial / LotClosure Perclose Prostyle - [id number] Implanted:Qty: 1 on 12/06/20[facility] DeviceABBOTT [id number] / / [id number] 2 X 4in Surgicel Fibrillar - [id number] Implanted:Qty: 1 on 12/29/2023 [facility]: [id number] / / [id number] 10ml Hemostatic Matrix Fast Prep Floseal W/Recothrom - [id number] Implanted:Qty: 1 on 12/29/2023 by [facility]: CarotidBAXTER [id number]/30/2025 [id number] / / [id number] 0.8 X 8cm Vascu-Guard [id number] - [id number] Implanted:Qty: 1 on 12/29/2023 by [facility]: [id number] / / [id number] Procedures Procedure NamePriorityDate/TimeAssociated DiagnosisCommentsUS DOPPLER CAROTID Llvirtm8902/05/2025 Bilateral carotid artery stenosis from Last 3 Months Results * Carotid Duplex (02/05/2025)Specimen (Source)Anatomical Location / Laterality Collection Method / VolumeCollection TimeReceived Time02/05/2025 Narrative Authorizing ProviderResult TypeResult StatusJoy Araceli Almaguer MDC VASCULAR ORDERABLESFinal ResultPerforming OrganizationAddressCity/State/ZIP CodePhone Number ONBASE from Last 3 Months Insurance * Guarantor: Irene Baker TypeRelation to PatientDate of BirthPhone Billing AddressPersonal/LbhejqHacu1955 [address] [address] [address] [place] [address] [address] [place] [address] Advance Directives For more information, please contact: [phone] * Full Code (Latest Code Status on File) Date ActivatedDate InactivatedComments12/29/2023 4:49 PM12/30/2023 8:07 PM * Full Code Date ActivatedDate InactivatedComments12/06/2023 9:38 AM12/06/2023 11:53 AM * Full Code Date ActivatedDate InactivatedComments07/09/2019 3:43 PM12/06/2023 9:06 AM Care Teams Team MemberRelationshipSpecialtyStart DateEnd Abdullahi Conrad CNP [address] [place] [address] PCP - GeneralNurse Practitioner12/01/23
--- OUTSIDE RECORDS SUMMARY | 2025-03-20 14:13 | XMS_ITS | Clinical Summary ---
Author Organization [employer] [facility] Address [id number] [address] [place] [address] Care Team Providers Care Adjunct Spanish Instructor Name Role Phone Unavailable Primary Care Provider Unavailabl e Allergies Active AllergyReactionsCriticalityNoted DateCommentsSulfa (Sulfonamide Antibiotics)12/08/2024 Medications MedicationSigDispense QuantityRefillsLast FilledStart DateEnd DateStatus amoxicillin-pot clavulanate (AUGMENTIN) 875-125 mg per tablet Take 1 tablet by mouth every 12 (twelve) hours.5Active atorvastatin (LIPITOR) 40 mg tablet Take 1 tablet (40 mg total) by mouth in the morning.4Active lisinopriL (PRINIVIL,ZESTRIL) 2.5 mg tablet Take 1 tablet (2.5 mg total) by mouth in the morning.Active metoprolol succinate XL (TOPROL XL) 25 mg 24 hr tablet Take 1 tablet (25 mg total) by mouth in the morning.Active Active Problems ProblemNoted DateDiagnosed HuumJwdbqm93/02/2025 Social History Tobacco UseTypesPacks/DayYears UsedDateSmoking Tobacco: Never AssessedChildcare AnswerDate WkpdvuguAvjcebxlfMlnhmcf97/12/2019EmploymentAnswerDate Recorded QclytbruxkTubhamj35/12/2019CommentsUnknownSex and Gender Information ValueDate RecordedSex Assigned at BirthNot on fileLegal UxkIjterd82/05/2015 5:42 PM EDTGender IdentityNot on fileSexual OrientationNot on file Last Filed Vital Signs Vital SignReadingTime TakenCommentsBlood Lcqnyoaf756/9908 10:00 AM EDT Idfhs8240 10:00 AM IZZSoqjptgeymy27.5 ??C (97.7 ??F)12/09/2024 8:00 AM EDTRespiratory Mves280412/09/2024 10:00 AM EDTOxygen Gfvhywsmnz351%12/09/2024 9:00 AM EDTInhaled Oxygen Concentration--Xhgjcp14.9 kg (129 lb 13.6 oz)12/09/2024 5:00 AM VTPDshqes696.6 cm (5' 4 )12/07/2024 11:57 PM EDTBody Mass Index22.29 12/07/2024 11:57 PM EDT Plan of Treatment Health MaintenanceDue DateLast DoneCommentsDepression Fpkrjzszm80/18/1967Tobacco Sjmtrdqbo74/18/1967Fall Risk Oyukmotju57/18/2020Zoster (Shingles) Vaccine (2 of 2)/OVID-19 Vaccine ( season), 03/23/2023, 03/24/2021, Additional history existsInfluenza Ppdsmoy0401/06/2025 02/07/2024, 03/13/2023, 03/08/2022, Additional history existsAdult BMI Screening DTaP,Tdap and Td Vaccines (3 - Td or Tdap)09/18/2034 09/18/2024, 02/10/2015RSV ( or age 60+ yrs)Rkiafidzm77/29/2024, 03/23/2023 Medical Devices Not on file Insurance Advance Directives * Full Code (Latest Code Status on File) Date ActivatedDate InactivatedComments12/08/2024 12:04 AM12/09/2024 1:35 PM
--- OUTSIDE RECORDS SUMMARY | 2025-03-20 14:13 | XMS_ITS | Clinical Summary ---
Author Organization [facility] Address [address], [address] [place] [address] Care Team Providers Care Tail Puller Name Role Phone Abdullahi Zarate RESIDENT ATHLETIC TRAINER - ACCESS NURSE Primary Care Provider Allergies Active AllergyReactionsCriticalityNoted DateCommentsSulfa Qwuorvxcfwk86/22/2012 Medications MedicationSigDispense QuantityRefillsLast FilledStart DateEnd DateStatus ACETAMINOPHEN PO Take 500 mg by mouth daily Takes 1 in morningActive diphenhydrAMINE (BENADRYL) 25 MG capsule Take 2 capsules by mouth continuousActive Multiple Vitamins-Minerals (COMPLETE MULTIVITAMIN/MINERAL PO) Take by mouthActive aspirin 81 MG EC tablet Indications:Essential hypertensionTake 1 tablet by mouth daily 90 tablet ctive nitroGLYCERIN (NITROSTAT) 0.[address] 1 tablet under the tongue every 5 minutes as needed for Chest pain 25 tablet ctive metoprolol succinate (TOPROL XL) 25 MG extended release tablet Indications:Essential hypertension,Dyslipidemia,History of stroke,Coronary artery calcification,Tobacco abuse counselingTake 1 tablet by mouth once daily 90 tablet ctive ondansetron (ZOFRAN-ODT) 4 MG disintegrating tablet Take 1 tablet by mouth every 8 hours as needed for Nausea or Vomiting 10 tablet 04/07/2025Active Misc. Devices (COMMODE BEDSIDE) MISC Indications:Irritable bowel syndrome with diarrhea,Weakness1 each by Does not apply route daily as needed (diarrhea) 1 each 5Active amoxicillin-clavulanate (AUGMENTIN) 875-125 MG per tablet Take 1 tablet by mouth every 12 hours5Active gabapentin (NEURONTIN) 100 MG capsule Take 1 capsule by mouth 2 times daily for 90 days. 180 capsule 5Active lisinopril (PRINIVIL;ZESTRIL) 2.5 MG tablet Indications:Essential hypertensionTake 1 tablet by mouth once daily 90 tablet 5Active VOWST CAPS 01/21/2025tive vancomycin (VANCOCIN) 125 MG capsule TAKE 1 CAPSULE BY MOUTH THREE TIMES DAILY FOR 7 DAYS THEN 1 TWICE DAILY FOR 7 DAYS THEN 1 ONCE DAILY FOR 7 DAYS THEN EVERY OTHER DAY FOR 4 DOSES12/19/2024 Active atorvastatin (LIPITOR) 40 MG tablet Indications:DyslipidemiaTake 1 tablet by mouth nightly 90 tablet 5Active levalbuterol (XOPENEX) 1.25 MG/3ML nebulizer solution Indications:Emphysema lung (HCC)Take 3 mLs by nebulization every 6 hours as needed for Wheezing J44.0 J20.9 25 each 5Active levalbuterol (XOPENEX) 1.25 MG/3ML nebulizer solution Indications:Chronic obstructive pulmonary disease with acute exacerbation (HCC) Take 3 mLs by nebulization every 6 hours as needed for Wheezing J44.0 J20.9 25 each Discontinued(REORDER) atorvastatin (LIPITOR) 40 MG tablet Indications:DyslipidemiaTake 1 tablet by mouth nightly 90 tablet Discontinued(REORDER) zoster recombinant adjuvanted vaccine (SHINGRIX) 50 MCG/0.5ML SUSR injection Indications:Need for shingles vaccineInject 0.5 mLs into the muscle See Admin Instructions 1 dose now and repeat in 2-6 months 0.5 mL Expired Active Problems ProblemNoted DateDiagnosed DateNormocytic ysayon442Chronic renal disease, stage III (HCC) [143248]2PVD (peripheral vascular disease)08/16/2021 Fkbazuxcageb79/08/2021Cigarette nicotine dependence without complication 1Anemia in chronic itmeciq4202/01/2017Vitamin D vtbqfqqovd27/20/2017 Traumatic hematoma of groin12/13/2015Cerebrovascular accident (CVA) due to stenosis of carotid tvxmge6012/10/2015 Overview (01/18/2016): Acute stroke in December 2015. CT brain scan with no acute process. CTA of the head and neck with approximately 70- 80% right carotid bulb and 80-90% left carotid bulb stenoses. Echocardiogram with hyperdynamic left ventricular function but no evidence of ventricular outflow obstruction but aortic sclerosis without stenosis. MRI brain image with several rounded foci and linear areas of restricted diffusion involving the mid to posterior left cerebral hemisphere. Cerebral angiography revealed a symptomatic 63% stenosis of the left cervical ICA just distal to his origin, a focal approximately 45%stenosis of the right ICA at its origin and a focal approximately 45% stenosis of the left ICA petrous portion. This was followed up by successful carotid stenting and balloon angioplasty by Dr. Shipman for symptomatic 64% ICA stenosis with tandem 45% left intracranial ICA stenosis. Last laboratories in January 2016 included a normal blood sugar, BUN and calcium but a borderline creatinine at 0.95 and low sodium/chloride at 127/91. Also a CBC revealed a mild anemia with a hemoglobin/hematocrit at11.5/34.2. Also treated with Aspirin 81 mg and Plavix. Reevaluation by Dr. Shipman will include repeat CTA of headand neck in 1 year and whether to continue dual antiplatelets or transition to single agent as she has intracranial stenosis. ([facility]) History of malignant neoplasm of left trcgjm9109/01/2015Essential hypertension 08/26/20153077Mwmbqwpssjvbmz46/21/2014History of breast foytkg6812/26/2013Elevated lppwjedm14/28/2014S/P lumpectomy, left bwzqoe0712/05/2012White coat hypertension 08/17/2012Chronic obstructive pulmonary disease with acute exacerbation 01/02/2012Tobacco abuse08/09/2011 Overview (08/09/2011): Smokes 1PPD, refuses to quit Cerebral embolismTransient blindness of left eyeBilateral carotid artery stenosisIntracranial carotid stenosis Resolved Problems ProblemNoted DateDiagnosed DateResolved DateMalignant neoplasm of upper-outer quadrant of left female breast, unspecified estrogen receptor nzzicx1608/14/2019 3Acute blood loss jqdlqk78Alcohol dependence with jfdkirrmjg45Weakness of both legsHTN (hypertension)08/08/Alcohol abuse Overview (08/17/2012): Admits to at least 6 beers daily Cstoeseukdfr52/20/2016Chronic back pain08/14/2019 Encounters DateTypeDepartmentCare HtzuAtasihnyfdv24/06/2025 1:40 PM ESTOffice Visit [place] [phone] Abdullahi Zarate APRN - ACCESS NURSE Medicare annual wellness visit, subsequent (Primary Dx); Dyslipidemia; Emphysema lung (HCC); Personal history of tobacco use; Encounter for screening mammogram for malignant neoplasm of zlgsvg7403/07/2025 2:07 PM EDT - 03/07/2025 11:59 PM EDTHospital Encounter [address] [address] Stage 3a chronic kidney disease (HCC); Irritable bowel syndrome with diarrhea Discharge Disposition: Home or Self Care03/06/2025Telephone [address] [phone] Abdullahi Zarate APRN - ACCESS NURSE labs02/18/2025 1:30 PM EDTClinical Support [address] [phone] Need for influenza vaccination (Primary Dx)02/18/2025bstract [address] [phone] Abdullahi Zarate APRN - ACCESS NURSE 02/05/2025 12:33 PM EDT - 02/07/2025 11:59 PM EDTHospital Encounter [facility] [address] [place] [address], [place] [address] Bilateral carotid artery stenosis Discharge Disposition: Home or Self Care01/23/2025[facility] [address] [place] [facility] [place] [phone] Abdullahi Zarate RESIDENT ATHLETIC TRAINER - ACCESS NURSE 01/17/2025Refill [facility] [address] [place] [facility] [place] [place] [phone] Abdullahi Zarate APRN - ACCESS NURSE Medication Xouaao1101/16/2025[facility] [address] [place] [place] [place] [phone] Abdullahi Zarate RESIDENT ATHLETIC TRAINER - ACCESS NURSE 01/15/2025Refill [facility] [address] [place] [facility] [place] [place] [address] Abdullahi Zarate RESIDENT ATHLETIC TRAINER - ACCESS NURSE Medication Slectn0901/15/2025Transcribe Orders [facility] [address] [place] [address], [facility]83 Taylor Crews MD Bilateral carotid artery stenosis (Primary Dx)01/13/2025Orders Only [facility] [address] [place] [address], [place] [address] Taylor Crews MD 01/02/2025[facility] [address] [place] [facility] [place] [place] [address] Abdullahi Zarate RESIDENT ATHLETIC TRAINER - ACCESS NURSE 12/19/2024[facility] [address] [place] [facility] [place] [place] [place] [address] Abdullahi Zarate RESIDENT ATHLETIC TRAINER - ACCESS NURSE from Last 3 Months Immunizations ImmunizationAdministration DatesNext DueCOVID-19, MICHELLE (Pfizer), (age 12y+), IM, 30mcg/0.3mL1/4COVID-19, Inactive, MODERNA BLUE border, Primary or Immunocompromised, (age 12y+)03/24/2021,08/07/2020,07/10/2020OVID-19, SPIKEVAX (Moderna), (age 12y+), IM, 50mcg/0.5mL03/23/2023Hep A-Hep B, TWINRIX, (age 18y+), IM, 1mL09/18/2024Influenza Vaccine, unspecified formulation 02/16/2016,02/04/2015Influenza Virus Ogcbybb5502/04/2015,02/25/2014,03/14/2012 Influenza, FLUAD, (age 65 y+), IM, Quadv, 0.5mL03/13/2023,03/08/2022,03/01/2021 Influenza, FLUAD, (age 65 y+), IM, Trivalent PF, 0.5mL02/18/2025,02/07/2024 Influenza, FLUARIX, FLULAVAL, FLUZONE (age 6 mo+) and AFLURIA, (age 3 y+), Quadv PF, 0.5mL02/13/2020,02/13/2019,02/12/2018,01/30/2017Pneumococcal, PCV20, PREVNAR 20, (age 6w+), IM, 0.5mL3Pneumococcal, PPSV23, PNEUMOVAX 23, (age 2y+), SC/IM, 0.5mL03/08/2022,02/15/2021,12/31/2013RSV, AREXVY, (age 60y+), PF, IM, 0.5mL03/05/2024,03/23/2023TDaP, ADACEL (age 10y-64y), BOOSTRIX (age 10y+), IM, 0.5mL09/18/2024,02/10/2015Zoster Live (Zostavax)09/18/2024Zoster Recombinant (Shingrix)02/18/2025,09/18/2024 Family History Medical HistoryRelationNameCommentsCancerFatherLewis KingColon CancerFatherLewis KingBanner Rehabilitation Hospital Westast CancerMaternal AuntAnita ThompsonDiabetesMaternal GrandmotherFlossie BarrickAlroslindale general hospital's DiseaseMotherCancerPaternal GrandfatherVernon Vivek Sister 3Pam WaldockRelationNameStatusCommentsBrother 1AliveBrother 2AliveFather Antonino KingAliveMaternal AuntAnita ThompsonMaternal GrandmotherFlossie Chapin MotherDeceasedPaternal GrandfatherVernon Sister 1AliveSister 2AliveSister 3 Bibiana Alma Social History Tobacco UseTypesPacks/DayYears UsedDateSmoking Tobacco: Every DayCigarettes1.544 Smokeless Tobacco: Never Tobacco Cessation:Ready to Q uit: Yes; Counseling Given: Yes Alcohol UseStandard Drinks/WeekCommentsYes1 (1 standard drink = 0.6 oz pure alcohol)A beer every once in awhileAUDIT-CAnswerDate RecordedQ1: How often do you have a drink containing alcohol?2-4 times a month03/06/2024Q2: How many drinks containing alcohol do you have on a typical day when you are drinking?1 or Q3: How often do you have six or more drinks on one occasion?Never 03/06/2024Overall Financial Resource Strain (CARDIA)AnswerDate RecordedHow hard is it for you to pay for the very basics like food, housing, medical care, and heating?Patient gntyctlj87/02/2024HQ-2AnswerDate RecordedPHQ-9 Total Score0 03/06/2025Exercise Vital SignAnswerDate RecordedOn average, how many days per week do you engage in moderate to strenuous exercise (like a brisk walk)?6 days 03/06/2024On average, how many minutes do you engage in exercise at this level? 30 min03/06/2024RAPARE - TransportationAnswerDate RecordedIn the past 12 [...] steady place to sleep or slept in lewistownelter (including now)?No09/11/2023Housing Stability Vital SignAnswerDate RecordedIn the last 12 months, was there a time when you were not able to pay the mortgage or rent on time?No03/13/2025In the past 12 months, how many times have you moved where you were living?t any time in the past 12 months, were you homeless or living in a fci (including now)?No03/13/2025UDIT-CAnswerDate RecordedQ1: How often do you [...] exercise at this level?30 min03/06/2025Hunger Vital SignAnswerDate RecordedWithin the past 12 months, you worried that your food would run out before you got the money to buymore.Never true03/13/2025Within the past 12 months, the food you bought just didn't last and you didn't have money to get more.Never true03/13/2025PRAPARE - TransportationAnswerDate RecordedIn the past 12 months, has lack of transportation kept you from medical appointments or from getting medications?No 03/13/2025In the past 12 months, has lack of transportation kept you from meetings, work, or from getting things needed for daily living?No03/13/2025HC UtilitiesAnswerDate RecordedIn the past 12 months has the electric, gas, oil, or water company threatened to shut off services in your home?No03/13/2025 CommentsNoSex and Gender InformationValueDate RecordedSex Assigned at [place]0003/02/2020 2:33 PM EDTLegal SfkGzsldx25/10/2013 9:43 PM ESTGender Identity Tkwmdd6303/02/2020 2:33 PM EDTSexual YfpxnwabzemXjedthur91/26/2020 2:33 PM EDT Last Filed Vital Signs Vital SignReadingTime TakenCommentsBlood Udgxiqlm061/6403/13/2025 1:36 PM EST Qylnu808103/13/2025 1:36 PM TNERfxafpzkbtk98.7 ??C (98 ??F)03/13/2025 1:36 PM EST Respiratory Yczb045509/10/2024 1:41 PM EDTOxygen Awprtnbtwg83%03/13/2025 1:36 PM ESTInhaled Oxygen Concentration--Dkfstm89.3 kg (122 lb)03/13/2025 1:36 PM EST Tjhoho339.1 cm (5' 5 )03/13/2025 1:36 PM ESTBody Mass Index20.311 1:36 PM EST Plan of Treatment DateTypeDepartmentCare Team (Latest Contact Info)Tpxwsdwwtgm17/19/2025 12:00 PM ESTOffice Visit [facility] Part of [facility] [address] [phone] Indy Gonzalez MD [address] [place], [place] [phone] breast cancer whkkfw9507/24/2025 1:00 PM EDTOffice Visit [facility] Part of [address] [phone] Lorena De La Vega MD [address] [place] [address] [place] [phone] 1 09/10/2025 1:40 PM EDTOffice Visit [facility] [address] [place] [address] Abdullahi Zarate, RESIDENT ATHLETIC TRAINER - ACCESS NURSE [address] [place] [address] 6 monthHealth MaintenanceDue DateLast DoneCommentsFIT/FOBT: Average risk 02/23/2000Sigmoidoscopy/CT szfsgdkpvkyy04/18/2000Lung Cancer Screening &/or Pnggpykpym39, 03/20/2023, 03/18/2022, Additional history existsBreast cancer nytwag50, 03/16/2023, 01/21/2022, Additional history smmyogHcmqlq28/30/202604/, 09/04/2023, 09/06/2022, Additional history existsHepatitis C ozgzpu5809/10/2025Postponed from 1973 (Patient Refused)Fecal-DNA (Cologuard): Average risk/ Strvwyqjqes60, 02/06/2016, 02/07/2011 (Previously completed) Colorectal Cancer Eyhgge9210/19/2025Depression Txfukq99, 03/06/2025GFR test (Diabetes, CKD 3-4, OR last GFR 15-59), 09/04/2024, 08/12/2024, Additional history existsCOVID-19 Vaccine ( season), 03/23/2023, 03/24/2021, Additional history exists Postponed from 01/06/2025 (Patient Refused)Hepatitis B vaccine (2 of 3 - Hep B Twinrix 3-dose series)/Postponed from 10/16/2024 (Patient Refused)Annual Wellness Visit (Medicare), 03/13/2024, 03/13/2023, Additional history existsDTaP/Tdap/Td vaccine (3 - Td or Tdap) , 02/10/2015DEXA (modify frequency per FRAX score)Completed 07/25/2011Cervical cancer screenDiscontinuedHPV (without or with Pap) Rhwcdxdeihra24/19/2020Pap vxpvpMoeuneaoweji81/19/2020, 02/24/2020, 02/24/2020, Additional history existsPneumococcal 0-49 years PmkhxckKkldjgylugmy87/06/2023, 03/08/2022, 02/15/2021, Additional history existsPneumococcal 50+ years Vaccine Vpvzinlvm16/06/2023, 03/08/2022, 02/15/2021, Additional history exists Respiratory Syncytial Virus (RSV) or age 60 yrs+Zqthlugjw94/29/2024, 03/23/2023Hepatitis A vaccineAged Out09/18/2024No longer eligible based on patient's age to complete this topicFlu ewlpkfgBsksrgeeb93/14/2025, 02/07/2024, 03/13/2023, Additional history existsShingles rvztdpzTupwfbtmx17/14/2025, 09/18/2024, 09/18/2024Hib vaccineAged OutNo longer eligible based on patient's age to complete this topicMeningococcal (ACWY) vaccineAged OutNo longer eligible based on patient's age to complete this topicMeningococcal B vaccineAged OutNo longer eligible based on patient's age to complete this topicPolio vaccineAged OutNo longer eligible based on patient's age to complete this topic Procedures Procedure NamePriorityDate/TimeAssociated DiagnosisCommentsCBC WITH AUTO UATVXSIWLLRZKisvwpa55/31/2025 2:13 PM EDT Stage 3a chronic kidney disease (HCC) Irritable bowel syndrome with diarrhea BASIC METABOLIC ZRRPLLitfrsa99/31/2025 2:13 PM EDT Stage 3a chronic kidney disease (HCC) Irritable bowel syndrome with diarrhea VAS DUP CAROTID QZLCVHUKZWvhaabh52/01/2025 1:14 PM EDT Bilateral carotid artery stenosis LIPID ZKBAHEnfdger38/30/2025 11:20 AM EDT Dyslipidemia EDDIE PROSPER DIGITAL SCREEN MFDNOVECDGicssix11/27/2024 2:24 PM EST Visit for screening mammogram CT LUNG SCREENING (INITIAL/ANNUAL)Faxkusd4403/22/2024 11:46 AM EST Personal history of tobacco use FECAL DNA COLORECTAL CANCER SCREENING (COLOGUARD)Udtvonr1810/18/2022 7:25 AM EDT Colon cancer screening HPV, HIGH RISK WITH QRRPZDIBMXCpsbnzb64/19/2020 11:10 AM EDT AUTHORS MOTIVATIONAL BJXYQCNZCgemgtr59/19/2020 8:54 AM EDT HM KTQEKNRCHCFNkrrtkq99/18/2016DEXA BONE DENSITY BNRGZAonygbu63/19/2012 9:34 AM EDT from Last 3 Months or Most Recently Relevant to Health Maintenance Results * (ABNORMAL) CBC with Auto Differential (03/07/2025 2:13 PM EDT)ComponentValue Ref RangeTest MethodAnalysis TimePerformed AtPathologist SignatureWBC9.03.5 - 11.3 k/uL03/07/2025 2:13 PM [facility] LABRBC3.66(L)3.95 - 5.11 m/uL03/07/2025 2:13 PM [facility] LABHemoglobin 11.5(L)11.9 - 15.1 g/dL03/07/2025 2:13 PM [facility] Yexzcsplhg23.6(L)36.3 - 47.1 %03/07/2025 2:13 PM [facility] KTPXQR60.582.6 - 102.9 fL03/07/2025 2:13 PM [facility] EXSUCN48.425.2 - 33.5 pg03/07/2025 2:13 PM [facility] MGVRWBF58.228.4 - 34.8 g/dL03/07/2025 2:13 PM [facility] QROXEQ78.211.8 - 14.4 %03/07/2025 2:13 PM [facility] ACCTcpgsirws222251 - 453 k/uL03/07/2025 2:13 PM [facility] LABMPV8.68.1 - 13.5 fL03/07/2025 2:13 PM [facility] LABNRBC Automated0.00.0 per 100 WBC03/07/2025 2:13 PM [facility] LABNeutrophils %5536 - 65 %03/07/2025 2:13 PM [facility] LABLymphocytes %3124 - 43 %03/07/2025 2:13 PM [facility] LABMonocytes %73 - 12 %03/07/2025 2:13 PM [facility] LABEosinophils %6(H)1 - 4 %03/07/2025 2:13 PM [facility] LABBasophils %10 - 2 %03/07/2025 2:13 PM [facility] LABImmature Granulocytes %00 %03/07/2025 2:13 PM [facility] LABNeutrophils Absolute4.991.50 - 8.10 k/uL 03/07/2025 2:13 PM [facility] LABLymphocytes Absolute2.73 1.10 - 3.70 k/uL03/07/2025 2:13 PM [facility] Monocytes Absolute0.590.10 - 1.20 k/uL03/07/2025 2:13 PM [facility] LABEosinophils Absolute0.56(H)0.00 - 0.44 k/uL03/07/2025 2:13 PM [facility] LABBasophils Absolute0.070.00 - 0.20 k/uL 03/07/2025 2:13 PM [facility] LABImmature Granulocytes Absolute<0.030.00 - 0.30 k/uL03/07/2025 2:13 PM [facility] LABSpecimen (Source)Anatomical Location / LateralityCollection Method / VolumeCollection TimeReceived TimeBloodBLOOD SPECIMEN / Jxjreka0603/07/2025 2:13 PM EDT1 2:14 PM EDT Narrative Authorizing ProviderResult TypeResult StatusBrett W Might RESIDENT ATHLETIC TRAINER - CNPHEMATOLOGY ORDERABLESFinal ResultPerforming OrganizationAddressCity/State/ZIP CodePhone Number [facility] [address] [id number], [facility] [phone] * (ABNORMAL) Basic Metabolic Panel (03/07/2025 2:13 PM EDT)ComponentValueRef RangeTest MethodAnalysis TimePerformed AtPathologist AbkrjmazcEkorlk197(L)136 - 145 mmol/L1 2:13 PM [facility] LABPotassium4.2 3.7 - 5.3 mmol/L1 2:13 PM [facility] LABChloride 96(L)98 - 107 mmol/L1 2:13 PM [facility] LABCO2 2620 - 31 mmol/L1 2:13 PM [facility] LABAnion Mrr346 - 16 mmol/L1 2:13 PM [facility] Vjdrjas7595 - 99 mg/dL03/07/2025 2:13 PM [facility] XAH104 - 23 mg/dL03/07/2025 2:13 PM [facility] Creatinine0.90.50 - 0.90 mg/dL03/07/2025 2:13 PM [facility] LABEst, Glom Filt Rate67>60 mL/min/1.68a68503/07/2025 2:13 PM [facility] LABComment: ? These results are not [...] therapy that affects renal tubular secretion. BUN/Creatinine Vgptj063 - 2:13 PM [facility] LABCalcium9.68.6 - 10.4 mg/dL03/07/2025 2:13 PM [facility] LABSpecimen (Source)Anatomical Location / LateralityCollection Method / Volume Collection TimeReceived TimeBloodBLOOD SPECIMEN / Kifgazt2103/07/2025 2:13 PM EDT 03/07/2025 2:14 PM EDT Narrative Authorizing ProviderResult TypeResult StatusBrett W Elliot RESIDENT ATHLETIC TRAINER - CNPCHEMISTRY ORDERABLESFinal ResultPerforming OrganizationAddressCity/State/ZIP CodePhone Number [facility] [address] [place] [address], [facility] [phone] * Vascular duplex carotid bilateral (02/05/2025 1:14 PM EDT)ComponentValueRef RangeTest MethodAnalysis TimePerformed AtPathologist SignatureRight cca dist PSV99.0cm/sBSMH CV CPACSRight CCA dist EDV32.5cm/sBSMH CV CPACSRight CCA mid PSV98.96cm/sBSMH CV CPACSRight CCA mid EDV35.07cm/sBSMH CV CPACSRight CCA prox PSV78.1cm/sBSMH CV CPACSRight CCA prox EDV22.0cm/sBSMH CV CPACSRight ECA PSV 106.4cm/sBSMH CV CPACSRight ECA EDV15.99cm/sBSMH CV CPACSRight ICA dist PSV 108.1cm/sBSMH CV CPACSRight ICA dist EDV51.5cm/sBSMH CV CPACSRight ICA mid PSV 98.4cm/sBSMH CV CPACSRight ICA mid EDV41.8cm/sBSMH CV CPACSRight ICA prox PSV 87.9cm/sBSMH CV CPACSRight ICA prox EDV23.2cm/sBSMH CV CPACSRight vertebral PSV53.7cm/sBSMH CV CPACSRight vertebral EDV17.47cm/sBSMH CV CPACSRight ICA/CCA PSV1.1no unitsBSMH CV CPACSLeft CCA dist PSV37.7cm/sBSMH CV CPACSLeft CCA dist EDV6.3cm/sBSMH CV CPACSLeft CCA mid PSV80.13cm/sBSMH CV CPACSLeft CCA mid EDV9.78cm/sBSMH CV CPACSLeft CCA prox PSV76.8cm/sBS[facility] CV CPACSLeft CCA prox EDV11.6cm/sBSMH CV CPACSLeft ECA PSV77.5cm/sBSMH CV CPACSLeft ECA EDV11.52cm/s [facility] CV CPACSLeft ICA dist PSV84.0cm/sBSMH CV CPACSLeft ICA dist EDV19.3cm/s [facility] CV CPACSLeft ICA mid PSV85.3cm/sBSMH CV CPACSLeft ICA mid EDV18.0cm/sBSMH CV CPACSLeft ICA prox PSV74.9cm/sBS[facility] CV CPACSLeft ICA prox EDV12.8cm/sBSMH CV CPACSLeft vertebral PSV63.3cm/sBSMH CV CPACSLeft vertebral EDV24.46cm/sBSMH CV CPACSLeft ICA/CCA PSV2.27no unitsBSMH CV CPACSAnatomical RegionLaterality ModalityVascular, HeadVascular UltrasoundSpecimen (Source)Anatomical Location / LateralityCollection Method / VolumeCollection TimeReceived Time Narrative 02/05/2025 1:58 PM EDT No stenosis in the right internal carotid artery. Mild (<50%) stenosis in the left internal carotid artery. ?Normal antegrade flow involving the right vertebral artery. ?Normal antegrade flow involving the left vertebral artery. Right Carotid Patient is s/p carotid endarterectomy. Common Carotid Artery: Intimal thickening present. Carotid Bulb: Intimal thickening plaque. Internal Carotid Artery: No stenosis. External Carotid Artery: Patent. Vertebral Artery: Flow is antegrade. Left Carotid Left carotid stent (CCA extending into the ICA) present, with stent patent. Common Carotid Artery: Patent. Internal Carotid Artery: Mild (<50%) stenosis. External Carotid Artery: Patent. Vertebral Artery: Flow is antegrade. Hand [employer] Details Overall the study quality was technically difficult. Authorizing ProviderResult TypeResult StatusJoy Araceli Almaguer [facility] [place]ULAR ORDERABLESFinal Result * Lipid Panel (09/04/2024 11:20 AM EDT)ComponentValueRef RangeTest Method Analysis TimePerformed AtPathologist SignatureCholesterol, Flzim1335 - 199 mg/dL09/04/2024 11:20 AM EDTMERCY LABORATORIESComment: Cholesterol Guidelines: <200 Desirable 200-240 ??Borderline >240 Undesirable HDL73>40 mg/dL09/04/2024 11:20 AM EDTMERCY LABORATORIESComment: HDL Guidelines: <40 Undesirable 40-59 ?Borderline >59 Desirable LDL Snuqoqoolxg330 - 100 mg/dL09/04/2024 11:20 AM EDTMERCY LABORATORIESComment: LDL Guidelines: <100 Desirable 100-129 ?? Near to/above Desirable 130-159 ?? Borderline >159 Undesirable Direct (measured) LDL and calculated LDL are not interchangeable tests. Chol/HDL Ratio2.0<5.004 11:20 AM EDTMERCY JRPDQJKIBMAIBnbaanutaleuj40 <150 mg/dL09/04/2024 11:20 AM EDTMERCY LABORATORIESComment: Triglyceride Guidelines: <150 Desirable 150-199 ??Borderline 200-499 ??High >499 Very high Based on AHA Guidelines for fasting triglyceride, February 2012. WMUE937 - 30 mg/dL09/04/2024 11:20 AM EDTMERCY LABORATORIESSpecimen (Source) Anatomical Location / LateralityCollection Method / VolumeCollection Time Received TimeBloodBLOOD SPECIMEN / Lmmviun1009/04/2024 11:20 AM EDT09/04/2024 11:21 AM EDT Narrative Authorizing ProviderResult TypeResult StatusBrett W Might RESIDENT ATHLETIC TRAINER - CNPCHEMISTRY ORDERABLESFinal ResultPerforming OrganizationAddressCity/State/ZIP CodePhone Number [facility] [address] [place] [address], [facility] [phone] [facility] [address] [place] [address], [facility] [phone] * EDDIE PROSPER DIGITAL SCREEN BILATERAL (04/03/2024 2:24 PM EST)Anatomical Region LateralityModalityBreastBilateralMammographySpecimen (Source)Anatomical Location / LateralityCollection Method / VolumeCollection TimeReceived Time 04/03/2024 2:39 PM EST Impressions 04/03/2024 2:39 PM EST Stable exam. No mammographic evidence of malignancy BIRADS: BIRADS - CATEGORY 2 Benign Findings. ??Normal interval follow-up is recommended in 12 months. OVERALL ASSESSMENT - BENIGN A letter of notification will be sent to the patient regarding the results. The [employer] recommends annual mammograms for women 40 years and older. Performing Facility: [place] [address] Narrative 04/03/2024 2:39 PM EST EXAMINATION: SCREENING DIGITAL BILATERAL MAMMOGRAM WITH TOMOSYNTHESIS, 04/03/2024 TECHNIQUE: Screening mammography was performed with tomosynthesis including MLO and CC views of the bilateral breasts. Computer aided detection was used for the interpretation of this exam. COMPARISON: March 16, 2023 and January 21, 2022 HISTORY: Screening. FINDINGS: The breasts are heterogeneously dense, which may obscure small masses. There is no dominant mass, architectural distortion or concerning grouping of microcalcification in either breast. ??Benign-appearing calcifications are stable. Authorizing ProviderResult TypeResult StatusShcoastal carolina hospital Hugo Deluna RESIDENT ATHLETIC TRAINER - CNPIMG MAMMOGRAPHY ORDERABLESFinal Result * CT Lung Screen (Initial/Annual/Baseline) (03/22/2024 11:46 AM EST)Anatomical RegionLateralityModalityComputed TomographySpecimen (Source)Anatomical Location / LateralityCollection Method / VolumeCollection TimeReceived Time 03/22/2024 12:04 PM EST Impressions 03/22/2024 12:07 PM EST No suspicious pulmonary nodule. LUNG RADS: Lung-RADS 1 - Negative (v2022) Management: ??12 month screening LDCT RECOMMENDATIONS: If you would like to register your patient with the [facility] Lung Nodule/Lung Cancer Screening Program, please contact the Nurse Navigator at [phone]). Narrative 03/22/2024 12:07 PM EST EXAMINATION: LOW DOSE SCREENING CT OF THE CHEST WITHOUT CONTRAST 03/22/2024 11:36 am TECHNIQUE: Low dose lung cancer screening CT of the chest was performed without the administration of intravenous contrast. ??Multiplanar reformatted images are provided for review. ??Automated exposure control, iterative reconstruction, and/or weight based adjustment of the mA/kV was utilized to reduce the radiation dose to as low as reasonably achievable. COMPARISON: March 20, 2023 HISTORY: Screening. History: ORDERING SYSTEM PROVIDED HISTORY: Personal history of tobacco use TECHNOLOGIST PROVIDED HISTORY: Age: Patient is 68 y.o. Smoking History: ?? Tobacco Use Smoking status: Every Day Packs/day: 1.50 Years: 1.5 packs/day for 44.0 years (66.0 ttl pk-yrs) Types: Cigarettes Smokeless tobacco: Never Date of last lung cancer screenin03/20/2023 Is there documentation of shared decision making?->Yes Is this a low dose CT or a routine CT?->Low Dose CT Is this the first (baseline) CT or an annual exam?->Annual Does the patient show any signs or symptoms of lung cancer?->No Smoking Status?->Every Day Pack Years->66 FINDINGS: Mediastinum: ??Thoracic aorta normal in course and caliber. ??No enlarged mediastinal or hilar lymph nodes by imaging size criteria. ??Heart size within normal limits. ??Triple-vessel coronary artery calcification present. Lungs/Pleura: ??Stable emphysema. ??No consolidation, pneumothorax or pleural effusion. ??Central airways are patent. No suspicious pulmonary nodule. Upper Abdomen: ??Limited visualization upper abdomen demonstrates no acute findings. Soft Tissues/Bones: Spinal degenerative changes with no acute findings. Procedure Note Geremias Kerns DO - 03/22/2024 EXAMINATION: LOW DOSE SCREENING CT OF THE CHEST WITHOUT CONTRAST 03/22/2024 11:36 am TECHNIQUE: Low dose lung cancer screening CT of the chest was performed without the administration of intravenous contrast. Multiplanar reformatted imagesare provided for review. Automated exposure control, iterativereconstruction, and/or weight based adjustment of the mA/kV was utilized to reduce the radiation dose to as low as reasonably achievable. COMPARISON: March 20, 2023 HISTORY: Screening. History: ORDERING SYSTEM PROVIDED HISTORY: Personal history of tobaccouse TECHNOLOGIST PROVIDED HISTORY: Age: Patient is 68 y.o. Smoking History: Tobacco Use Smoking status: Every Day Packs/day: 1.50 Years: 1.5 packs/day for 44.0 years (66.0 ttl pk-yrs) Types: Cigarettes Smokeless tobacco: Never Date of last lung cancer screenin03/20/2023 Is there documentation of shared decision making?->Yes Is this a low dose CT or a routine CT?->Low Dose CT Is this the first (baseline) CT or an annual exam?->Annual Does the patient show any signs or symptoms of lung cancer?->No Smoking Status?->Every Day Pack Years->66 FINDINGS: Mediastinum: Thoracic aorta normal in course and caliber. No enlarged mediastinal or hilar lymph nodes by imaging size criteria. Heart sizewithin normal limits. Triple-vessel coronary artery calcification present. Lungs/Pleura: Stable emphysema. No consolidation, pneumothorax orpleural effusion. Central airways are patent. No suspicious pulmonary nodule. Upper Abdomen: Limited visualization upper abdomen demonstrates noacute findings. Soft Tissues/Bones: Spinal degenerative changes with no acute findings. IMPRESSION: No suspicious pulmonary nodule. LUNG RADS: Lung-RADS 1 - Negative (v2022) Management: 12 month screening LDCT RECOMMENDATIONS: If you would like to register your patient with the [facility] LungNodule/Lung Cancer Screening Program, please contact the Nurse Navigator at [phone] Authorizing ProviderResult TypeResult StatusShcoastal carolina hospital Hugo Deluna RESIDENT ATHLETIC TRAINER - CNPIMG CT ORDERABLESFinal Result * Fecal DNA Colorectal cancer screening (Cologuard) (10/18/2022 7:25 AM EDT) ComponentValueRef RangeTest MethodAnalysis TimePerformed AtPathologist SignatureFIT-DNA (Cologuard)AjdiwuwlEhwluyhl22/20/2023 1:38 PM EDTEXThe Hut Group (CLIA #:[id number])Comment: NEGATIVE TEST RESULT. A negative Cologuard result indicates a low likelihood that a colorectal cancer (CRC) or advanced adenoma (adenomatous polyps with more advanced pre-malignant features) ??is present. The chance that a person with a negative Cologuard test has a colorectal cancer is less than 1in 1500 (negative predictive value >99.9%) or has an advanced adenoma is less than 5.3% (negative predictive value 94.7%). These data are based on a prospective cross-sectional study of 10,000individuals at average risk for colorectal cancer who were screened with both Cologuard and colonoscopy. (Lennie Cruz al, N Engl J Med 2014;370(14):6493-7517) The normal value (reference range) for this assay is negative. COLOGUARD RE-SCREENING RECOMMENDATION: Periodic colorectal cancer screening is an important part ofpreventive healthcare for asymptomatic individuals at average risk for colorectal cancer. ??Following a negative Cologuard result, the [employer] and U.S. Multi-Society Task Force screening guidelines recommend a Cologuard re-screening interval of 3 years. References: [employer] Guideline for Colorectal Cancer Screening: https://www.cancer.or g/cancer/sejxl-gkvviz-svgacq/sjzqyiclp-xsaucgomp-uaqpivj/acs-recommendations.htm l.; Cameron THAPA, Heide NÚÑEZ, Cindy CarrasquilloK, Colorectal Cancer Screening: Recommendations for Physicians and Patients from the U.S. Multi-Society Task Force on Colorectal Cancer Screening , Am J Gastroenterology 2017; 112:9638-1796. TEST DESCRIPTION: Composite algorithmic analysis of stool DNA-biomarkers with hemoglobin immunoassay. ?? Quantitative values of individual biomarkers are not reportable and are not associated with individual biomarker result reference ranges. Cologuard is intended for colorectal cancer screening ofadults of either sex, 45 years or older, who are at average-risk for colorectal cancer (CRC). Cologuard has been approved for use by the U.S. FDA. The performance of Cologuard was established in a cross sectional study of average-risk adults aged 50-84. Cologuard performance in patients ages 45 to 49 years was estimated by sub-group analysis of near-age groups. Colonoscopies performed for a positive result may find as the most clinically significant lesion: colorectal cancer [4.0%], advanced adenoma (including sessile serrated polyps greater than or equal to 1cm diameter) [20%] or non- advanced adenoma [31%]; or no colorectal neoplasia [45%]. These estimates are derived from a prospective cross-sectional screening study of 10,000 individuals at average risk for colorectal cancer who were screened with both Cologuard and colonoscopy. (Lennie Cruz al, N Engl J Med 2014;370(14):3033-6845.) Cologuard may produce a false negative or false positive result (no colorectal cancer or precancerous polyp present at colonoscopy follow up). A negative Cologuard test result does not guarantee the absence of CRC or advanced adenoma (pre-cancer). The current Cologuard screening interval is every 3 years. ([employer] and U.S. Multi-Society Task Force). Cologuard performance data in a 10,000 patient pivotal study using colonoscopy as the reference method can be accessed at the following location: www.[employer]/results. Additional description of the Cologuard test process, warnings and precautions can be found at www.cologBevBucksrd.com. Specimen (Source)Anatomical Location / LateralityCollection Method / Volume Collection TimeReceived TimeFeces (substance)STOOL SPECIMEN / Radqalx1710/18/2022 7:25 AM EDT10/19/2022 4:35 PM EDT Narrative Authorizing ProviderResult TypeResult StatusBrett Nathan Zarate APRN - CNPMICROBIOLOGY - GENERAL ORDERABLESFinal ResultPerforming OrganizationAddressCity/State/ZIP CodePhone Number [employer] (CLIA #:[id number]) [address] [place], [place] [address] [phone] * HPV, High Risk with Genotyping (02/24/2020 11:10 AM EDT)ComponentValueRef RangeTest MethodAnalysis TimePerformed AtPathologist SignatureHPV SOURCE .IBAHVV2302/24/2020 11:10 AM EDTMERCY LABORATORIESHPV, Genotype 16Not Detected 02/24/2020 11:10 AM EDTARUP LABORATORYHPV, High Risk OtherNot Detected 02/24/2020 11:10 AM EDTARUP LABORATORYComment: (NOTE) Performed By: [facility] [address] [place] [id number] Organic Extractions Technician: Neeru Walter MD HPV, Genotype 18Not Jwpvxopn77/19/2020 11:10 AM EDTARUP LABORATORYComment: (NOTE) INTERPRETIVE INFORMATION: HPV by Nucleic Acid Amplification This test detects High Risk HPV types (16, 18, 31, 33, 35, 39, 45, 51, 52, 56, 58, 59, 66, and 68) and differentiates HPV 16 and 18 associated with cervical cancer and its precursor lesions. Sensitivity may be affected by specimen collection methods, stage of infection, and the presence of interfering substances. Results should be interpreted in conjunction with other available laboratory and clinical data. A negative high-risk HPV result does not exclude the presence of other high-risk HPV types, the possibility of future cytologic abnormalities, underlying CIN2-3, or cancer. This test is intended for medical purposes only and is not valid for the evaluation of suspected sexual abuse or for other forensic purposes. HPV testing should not be used for screening or management of atypical squamous cells of undetermined significance (ASCUS) in women under age 21. Specimen (Source)Anatomical Location / LateralityCollection Method / Volume Collection TimeReceived Time02/24/2020 11:10 AM EDT1 11:10 AM EDT Narrative Authorizing ProviderResult TypeResult StatusKathljulio Lee Rao IRIZARRYN - [facility] HOSPITALHEMISTRY ORDERABLESFinal ResultPerforming OrganizationAddressCity/State/ZIP CodePhone Number [facility] [address] [place] [address], [facility] [phone] [facility] [address] [place] [address], [facility] [phone] [facility] [address] [place] [address], [facility] [phone] * AUTHORS MOTIVATIONAL Cytology (02/24/2020 8:54 AM EDT)ComponentValueRef RangeTest Method Analysis TimePerformed AtPathologist SignatureCytology ReportINTERPRETATION Cervical material, (ThinPrep vial, Imaging-assisted review): Specimen Adequacy: ? Satisfactory for evaluation. ? - Endocervical/transformation zone component present. Descriptive Diagnosis: ? Negative for intraepithelial lesion or malignancy. Reactive cellular changes associated with inflammation. Comments: ? High Risk HPV testing was ordered. Embedded Software Architect: ?? ROSELYN Denny M.D. Electronically Signed Out ? [facility]/03/02/2020 Procedure/Addendum HPV Procedure Report ? Date Ordered: ? 02/25/2020 ? Status: Signed Out ? Date Complete: ? 02/25/2020 ? By: KEYONA Verdugo(ASCP) ? Date Reported: ? 03/03/2020 ? INTERPRETATION Aptima HPV DNA High Risk ? HPV Sample ? Thin Prep ?(Ref Range) HPV Type 16 ? Not Detected ?(Not Detected) HPV Type 18 ? Not Detected ?(Not Detected) Other High Risk HPV ? Not Detected ?(Not Detected) HPV by Nucleic Acid Amplification ?? This test detects high-risk HPV types (16, 18, 31, 33, 35, 39, 45, 51, 52, 56, 58, 59, 66, and 68) and differentiates HPV 16 and 18 associated with cervical cancer and its precursor lesions. Sensitivity may be affected by specimen collection methods, stage of infection, and the presence of interfering substances. ??Results should be interpreted in conjunction with other available laboratory and clinical data. ??A negative high-risk HPV result does not exclude the presence of other high-risk HPV types, the possibility of future cytologic abnormalities, underlying CIN2-3 or cancer. This test is intended for medical purposes only and is not valid for the evaluation of suspected sexual abuse or for other forensic purposes. ??HPV testing should not be used for screening or management of atypical squamous cells of undetermined significance (ASCUS) in women under age 21. NOTE: HPV Type 16 and Other for Vaginal specimens only The specimen submitted for testing did not meet [employer] submission guidelines. ??Testing was performed on a specimen that did not meet validated specimen type requirements. ??Performance characteristics of this assay may be affected. ??Interpret results with caution. ??Please refer to the [employer] Laboratory Test Directory for information on specimen acceptability: ??https://www.[employer].Music Kickup/testing/specimen. Performed By: [facility] [address] [place] [id number] Organic Extractions Technician: Neeru Walter MD ? Source: 1: Cervical material, (ThinPrep vial, Imaging-assisted review) Clinical History Postmenopausal Z01.419 Routine risk officer exam without abnormal findings Z11.51 Encounter for screening for HPV Co-Test: ??ThinPrep Pap with high risk HPV testing GYNECOLOGIC CYTOLOGY REPORT Patient Name: IR[facility] Rec: Path Number: [id number] [facility] ??LABORATORIES CONSULTING PATHOLOGISTS [employer] ANATOMIC PATHOLOGY [address] [facility]. ??[place], [place] [address] [facility] LABORATORIESSpecimen (Source)Anatomical Location / LateralityCollection Method / VolumeCollection TimeReceived Time02/24/2020 8:54 AM EDT1 8:54 AM EDT Narrative Authorizing ProviderResult TypeResult StatusKatdella Yeh APRN - CNM PATHOLOGY/CYTOLOGY ORDERABLESEdited Result - FinalPerforming OrganizationAddress City/State/ZIP CodePhone Number [facility] [address] [place] [address], [facility] [phone] [phone] * HM COLONOSCOPY (02/23/2016) Narrative Authorizing ProviderResult TypeResult StatusHistorical Provider MDHEALTH MAINTENANCEFinal Result * DEXA bone density spine and hip (07/25/2011 9:34 AM EDT)Anatomical Region LateralityModalityHip, C-spine, T-spine, L-spineOtherSpecimen (Source) Anatomical Location / LateralityCollection Method / VolumeCollection Time Received Time07/25/2011 9:34 AM EDT Narrative 07/25/2011 11:33 AM EDT FINAL Procedure: ??TDD ??Jul 25 2011 ??9:34AM [id number] ??LUMBAR HIP COMBINATION DEXA Reason for Exam: ??OSTEOPENIA; BREAST CANCER FULL RESULT: ?? REPORT: ??DEXA BONE DENSITOMETRY REASON FOR EXAMINATION: Osteopenia. Postmenopause. The bone mineral density of lumbar spine is 1.540 g/cm2 with a T score of 3.0. ??The bone mineral density of both right and left hip is 0.845 and 0.850 g/cm2 with a T score of minus 1.3 respectively. IMPRESSION: BONE MINERAL DENSITY OF HIP IS OSTEOPENIC AND CURRENT FRACTURE RISK IS INCREASED. In order to promptly notify physicians concerning their patients, this unconfirmed document is being released. ??It is not considered final until reviewed and signed. Electronically Signed by German Rouse M.D. 07/25/2011 11:33 DP/KST DD: ??07/25/2011 ??9:46 A DT: ??07/25/2011 10:38 A CC: ?? Cristy Fong ?Myke Ireland M.D. IMPRESSION: ?? SEE ABOVE. Transcribed by: [facility] on Jul 25 2011 11:33A Read by: ??GERMAN ROUSE ??[id number] on Jul 25 2011 10:40A Electronically Signed by: ??DR. GERMAN ROUSE on: ??Jul 25 2011 11:33A ? Procedure Note German Rouse MD - 07/25/2011 FINAL Procedure: TDD Jul 25 2011 9:34AM [id number] LUMBAR HIP COMBINATIONDEXA Reason for Exam: OSTEOPENIA; BREAST CANCER FULL RESULT: REPORT: DEXA BONE DENSITOMETRY REASON FOR EXAMINATION: Osteopenia. Postmenopause. The bone mineral density of lumbar spine is 1.540 g/cm2 with a T scoreof 3.0. The bone mineral density of both right and left hip is 0.845 and 0.850 g/cm2 with a T score of minus 1.3 respectively. IMPRESSION: BONE MINERAL DENSITY OF HIP IS OSTEOPENIC AND CURRENT FRACTURE RISK IS INCREASED. In order to promptly notify physicians concerning their patients, this unconfirmed document is being released. It is not considered finaluntil reviewed and signed. Electronically Signed by German Rouse M.D. 07/25/2011 11:33 DP/KST A A CC: Cristy Ireland M.D. IMPRESSION: SEE ABOVE. Transcribed by: [facility] on Jul 25 2011 11:33A Read by: GERMAN ROUSE [id number] on Jul 25 2011 10:40A Electronically Signed by: DR. GERMAN ROUSE on: Jul 25 2011 11:33A Authorizing ProviderResult TypeResult StatusSalnorma Ireland MDIMG DEXA ORDERABLESFinal Result from Last 3 Months or Most Recently Relevant to Health Maintenance Insurance * Guarantor: Irene Lockhart Sal TypeRelation to PatientDate of BirthPhone Billing AddressPersonal/ZmcoseTsyr[id number] [address] * Guarantor: Irene Lockhart Sal TypeRelation to PatientDate of BirthPhone Billing AddressPersonal/ZizhfxTxlo[id number] [address] Advance Directives * Full Code (Latest Code Status on File) Date ActivatedDate InactivatedComments01/31/2018 9:44 AM02/03/2018 2:52 AM * Full Code Date ActivatedDate InactivatedComments12/21/2015 11:01 AM12/22/2015 5:17 PM * Full Code Date ActivatedDate InactivatedComments12/10/2015 11:12 PM12/21/2015 11:01 AM * Full Code Date ActivatedDate InactivatedComments12/10/2015 10:42 PM12/10/2015 11:12 PM * Full Code Date ActivatedDate InactivatedComments12/26/2013 7:50 PM12/31/2013 10:57 PM NameRelationshipHealthcare Agent RelationshipCommunicationMarge Long Brother/SisterPrimary Decision Maker* * * Care Teams Team MemberRelationshipSpecialtyStart DateEnd Date Might, Abdullahi Evans, RESIDENT ATHLETIC TRAINER - ACCESS NURSE PCP - GeneralNurse Practitioner07/23/13
--- OUTSIDE RECORDS SUMMARY | 2025-03-20 14:13 | XMS_ITS | Clinical Summary ---
Author Organization [facility] Address [address] [place] [address] Care Team Providers Care National Sales Trainer Name Role Phone Abdullahi Zarate [employer] Primary Care Provider [phone] Allergies Active AllergyReactionsCriticalityNoted DateCommentsSulfa (Sulfonamide Antibiotics)Ezbnonu6808/21/2017 Medications MedicationSigDispense QuantityRefillsLast FilledStart DateEnd DateStatus aspirin, enteric coated (ASPIRIN, ENTERIC COATED) 81 mg EC tablet Take 81 mg by mouth once daily.Active gabapentin (NEURONTIN) 100 mg capsule Take 100 mg by mouth twice daily.Active atorvastatin (LIPITOR) 40 mg tablet Take 40 mg by mouth daily at bedtime.Active lisinopril (ZESTRIL, PRINIVIL) 5 mg tablet Take 5 mg by mouth once daily.Active spironolactone (ALDACTONE) 25 mg tablet Take 25 mg by mouth once daily.Active clopidogrel (PLAVIX) 75 mg tablet Take 75 mg by mouth once daily.Active VITAMIN D 1,000 unit tab tablet Take 1 tablet by mouth once daily.Active diphenhydrAMINE (BENADRYL) 25 mg capsule Take 50 mg by mouth at bedtime as needed.Active cyanocobalamin (VITAMIN B-12) 1,000 mcg tab Take 1,000 mcg by mouth once daily.Active MULTIVITAMIN ORAL Take 1 tablet by mouth once daily.Active loratadine-pseudoephedrine ER (CLARITIN-D 12) 5-120 mg per tablet Take 1 tablet by mouth twice daily.Active acetaminophen 650 mg CR tablet Take 650 mg by mouth once daily.Active Active Problems No known active problems Social History Tobacco UseTypesPacks/DayYears UsedDateSmoking Tobacco: Every FqfXpxshhlgfd595 Smokeless Tobacco: NeverArea Deprivation IndexAnswerDate RecordedNational Score (1-100), lower number is lower riskNot on file04/15/2020State Score (1-10), lower number is lower riskNot on file04/15/2020Data from: https://www.neighborhoodatlas.medicine.[facility].edu/. Last address used for calculationNot on file04/15/2020CommentsNoSex and Gender Information ValueDate RecordedSex Assigned at BirthNot on fileLegal XgoUzpkjq46/16/2015 4:35 PM EDTGender IdentityNot on fileSexual OrientationNot on file Last Filed Vital Signs Vital SignReadingTime TakenCommentsBlood Jyksoglh915/7004 11:15 AM EDT Bnnxt3266 11:15 AM EDTTemperature--Respiratory Lojy075608/21/2017 11:15 AM EDTOxygen Owphouvnvi664%08/21/2017 11:15 AM EDTInhaled Oxygen Concentration-- Kzizks77.5 kg (118 lb)08/21/2017 11:15 AM JJVGxdyqs664.1 cm (5' 5 )08/21/2017 11:15 AM EDTBody Mass Index19.6404 11:15 AM EDT Plan of Treatment Health MaintenanceDue DateLast DoneCommentsAnxiety Bjfyhswqz19/18/1973Depression Hfdhyirot21/18/1973Hepatitis C Dygrrpshm25/18/1973Mammogram Ipuhvfpoe73/18/1995 CT Xpfuasmctbok07/18/2000Cologuard (FIT-DNA)02/23/20001304Vbjillnxlpl34/18/2000 Colorectal Cancer Wfnmdzcct59/18/2000Diabetes Vuaakfrjg55/18/2000Fecal Occult Blood02/23/2000Lipid Zbkzviown67/18/2149Aieiliwqyuzqy10/18/2000Shingrix Vaccine (1 of 2)2005Pneumococcal Vaccine: 50+ (2 of 2 - PCV) Bone Density Cwqrgvxtu58/18/2020Advance Directive Ndikhcxuye14/01/2025ovid-19 Vaccine (1 - 2024- season)2025Influenza Vaccine (#1) DTaP,Tdap,Td Vaccine (2 - Td or Tdap)RSV Vaccine (1 - 1-dose 75+ series)2030 Insurance Care Teams Team MemberRelationshipSpecialtyStart DateEnd Date Elliot, Abdullahi Evans [employer] PCP - GeneralFamily Medicine05/08/15
--- OUTSIDE RECORDS SUMMARY | 2025-03-20 14:13 | XMS_ITS | Encounter Summary ---
Author Organization [facility] Address [address], [address] [place] [address] Care Team Providers Care Civil Cad Designer Name Role Phone Abdullahi Zarate APRN, CNP Primary Care Provider Reason for Visit * ReasonOnset XszoDhwtmyzdhzeh52/30/2025 Encounter Details DateTypeDepartmentCare Team (Latest Contact Info)Scvxuccedql06/30/2025Telephone [facility] [place] [address] [place] [address] Abdullahi Zarate APRN - CNP [address] [place] [address] labs Social History Tobacco UseTypesPacks/DayYears UsedDateSmoking Tobacco: Every DayCigarettes1.544 Smokeless Tobacco: NeverAlcohol UseStandard Drinks/WeekCommentsYes1 (1 standard drink = 0.6 oz pure alcohol)A beer every once in [facility] EvolitaAnswerDate RecordedIn the past 12 months has the [...] like food, housing, medical care, and heating?Patient pypzmaoc78/02/2024HQ-2AnswerDate RecordedPHQ-9 Total Cdkfq474Exercise Vital SignAnswerDate RecordedOn average, how many days [...] steady place to sleep or slept in ashelter (including now)?No 09/11/2023Housing Stability Vital SignAnswerDate RecordedIn the last 12 months, was there a time when you were not able to pay the mortgage or rent on time?No 12/11/2024In the past 12 months, how many times have you moved where you were living?t any time in the past 12 months, were you homeless or living in a custodial (including now)?No12/11/2024UDIT-CAnswerDate RecordedQ1: How often do you [...] more.CommentsNoSex and Gender InformationValueDate RecordedSex Assigned at QlwomPyownf02/26/2020 2:33 PM EDT Legal OsxYcmrxd09/10/2013 9:43 PM ESTGender DjzugzrvJyaiyo70/26/2020 2:33 PM EDT Sexual UvmgbhikmiiNxolwwvy95/26/2020 2:33 PM EDTdocumented as of this encounter Plan of Treatment DateTypeDepartmentCare Team (Latest Contact Info)Tpyctroftyb24/19/2025 12:00 PM ESTOffice Visit [facility] [address] [place] [address] Indy Gonzalez MD [address] [place] [address] breast cancer ctqhek6407/24/2025 1:00 PM EDTOffice Visit [facility] [address] [place] [address] Lorena De La Vega MD [address] [place] [place] [address] 1 09/10/2025 1:40 PM EDTOffice Visit [facility] [place] [address] [place] [address] Abdullahi Zarate APRN - CNP [address] [place] [address] 6 monthdocumented as of this encounter Visit Diagnoses Not on filedocumented in this encounter Additional Health Concerns AssessmentNoted TimeA fall risk assessment has been completed for the patient 03/06/2025 2:04 PM EDTdocumented as of this encounter Care Teams Team MemberRelationshipSpecialtyStart DateEnd Date Abdullahi Zarate APRN - CNP PCP - GeneralNurse Practitioner07/23/13documented as of this encounter
--- NOTE | 2025-03-20 14:21 | MM_ITS ---
Patient Name: SAMUEL LOCKHART MR#: [id number] : 1955 Exam Date: 03/20/2025 Ordering Doctor: FLORENCIA [facility]ALLERO RADIOLOG[facility] REPORT PROCEDURE: MM TOMOSYNTHESIS SCREENING BI COMPARISON: MM TOMOSYNTHESIS SCREENING BI, 04/03/2024. MM TOMOSYNTHESIS SCREENING BI, 03/16/2023. INDICATIONS: screening mammogram for malignant neoplasm Calculator Name NCI Breast Cancer Risk Assessment Tool 5 Year Breast Cancer Risk Not Reported. Lifetime Breast Cancer Risk Not Reported. Personal Breast Cancer No Personal Ovarian Cancer No Treatments None Family Cancers None LOCATION: [facility] BREAST COMPOSITION: The breasts are heterogeneously dense, which may obscure small masses. FINDINGS: DIAGNOSTIC CATEGORY 2--BENIGN FINDING. NO CHANGE FROM COMPARISON. RIGHT BREAST: No significant suspicious finding. Similar focal asymmetries are noted. Benign-appearing calcifications are present. LEFT BREAST: No significant suspicious finding. There are amorphous calcifications in the upper-outer left breast 4.4 cm from the level with area of accompany architectural distortion is better demonstrated on tomosynthesis views. This is consistent with a prior lumpectomy site. This is unchanged appeared benign-appearing calcifications are present. Surgical clips are noted within the left axilla 3rd RECOMMENDATIONS: ROUTINE MAMMOGRAM AND CLINICAL EVALUATION IN 12 MONTHS. Dictated by: Jatin Barrett MD on 03/21/2025 at 07:38 Approved by: Jatin Barrett MD on 03/21/2025 at 07:44
== END 2025-03-20 14:09 | disposition home or self-care (01) ==
PROVIDERS: Visit Provider Midwife
DX: Z12.31 Encounter for screening mammogram for malignant neoplasm of breast (principal)
CPT/HCPCS: 77063; 77067